=== PATIENT | male | born 1945 | race African-American/Black ===

== ENCOUNTER 2017-04-07 14:41 | Inpatient (IN) ==
[2017-04-07] MEDS ORDERED: NS 1,000 ML IV ONE ×3 (15:08→16:39)
[2017-04-07 15:48] LABS: HEMATOCRIT 26.7 % (42.0-52.0); HEMOGLOBIN 8.5 g/dL (14.0-18.0); LYMPH% 74.6 % (20.5-51.1); MANUAL DIFF NEEDED? YES; MCH 28.1 PG (27-31); MCHC 31.8 g/dL (33-37); MCV 88.1 FL (81-99); MONO# 0.08 X1000 (0.11-0.59); MONO% 11.9 % (1.7-9.3); NEUT% 13.5 % (42.2-75.2); PLT 93 X1000 (130-400); RBC 3.03 XMIL (4.7-6.1)
--- NOTE | 2017-04-07 16:05 | Diag Imaging Result Doc PS360 ---
EXAM: CHEST-PORTABLE HISTORY: SOB TECHNIQUE: Portable AP COMPARISON: 03/13/2017 FINDINGS: There is a [id number] right-sided pleural effusion which remains. Although this may be slightly smaller, this difference in appearance may simply be due to the current film being taken in an apical lordotic projection. There is right basilar atelectasis. The heart is not enlarged. The vessels are not distended. IMPRESSION: Persistent right pleural effusion with basilar atelectasis Electronically signed by Abdoulaye Lopez 04/07/2017 4:03 PM
[2017-04-07 16:07] LABS: ALBUMIN 3.5 g/dL (3.5-5.0); CALCIUM 7.4 mg/dL (8.8-10.2); MAGNESIUM 1.9 mg/dL (1.5-2.7); POTASSIUM 4.2 mmol/L (3.5-5.1); TOTAL BILIRUBIN 0.7 mg/dL (0.20-1.00); TOTAL PROTEIN 7.3 g/dL (6.3-8.3)
[2017-04-07 16:16] LABS: INR 1.08 (0.86-1.15); PROTIME 14.9 Seconds (12.1-15.5)
[2017-04-07 16:17] LABS: PTT PL 48.2 Seconds (22.6-43.9)
[2017-04-07 16:22] LABS: LYMPHS 75 % (21-51); MONO 5 % (1-9)
[2017-04-07] MEDS ORDERED: LEVOPHED 8 MG in D5 1/2 NS 250 ML IV SCH (16:45)
[2017-04-07] MEDS ORDERED: ZOSYN 3.375 GM/NS 3.375 GM/50 ML IVPB IV ONE (17:37)
[2017-04-07] MEDS ORDERED: VANCOMYCIN 1 GM/NS 1 GM/250 ML IVPB IV ONE (17:37)
--- NOTE | 2017-04-07 18:42 | Diag Imaging Result Doc PS360 ---
ANGIOGRAM/PULMONARY ARTERIES - 04/07/2017 INDICATION: SOB with elevated D-dimer. Lung cancer on chemo TECHNIQUE: Axial CT images were obtained after administering intravenous contrast. Coronal MIP images were generated. A CT dose reduction protocol was used. COMPARISON: 01/27/2017 FINDINGS: There is moderate patient motion artifact. No definite pulmonary embolism. Heart and great vessels are normal. Upper abdominal images are grossly normal. There are some right-sided renal cysts. There is slight decrease in size of the right hilar mass. This now measures about 6.8 x 4.9 cm in AP and lateral dimensions, previously measuring about 7.4 x 5.5 cm. Trace right pleural effusion. There is some linear atelectasis or scarring in the right lower lobe. Airways are grossly patent. There is increase in size of a large bony metastasis in T3. This is in the vertebral body. A few other skeletal metastases in the spine have also enlarged since prior. IMPRESSION: 1. No definite pulmonary embolism. 2. Slight decrease in size of the right hilar mass. 3. Worsening skeletal metastatic disease. Electronically signed by Doyle Pittman 04/07/2017 6:40 PM
[2017-04-07] MEDS ORDERED: NEUPOGEN SUBQ ONE (19:51)
[2017-04-07] MEDS ORDERED: GRANIX SUBQ ONE (20:15)
[2017-04-07] MEDS: MAXIPIME 1 GM/NS 1 GM/50 ML IVPB IV SCH (20:22)
[2017-04-07 21:42] LABS: BILIRUBIN URINE NEGATIVE (NEGATIVE); BLOOD URINE NEGATIVE (NEGATIVE); CLARITY CLEAR (CLEAR); COLOR YELLOW; GLUCOSE URINE NEGATIVE (NEGATIVE); LEUKOCYTES URINE NEGATIVE (NEGATIVE); NITRITE URINE NEGATIVE (NEGATIVE); PROTEIN URINE TRACE mg/dL (NEGATIVE); URINE CULTURE PL NEEDED? YES; URINE EPITHELIAL CELLS <10 /HPF (<10); URINE RBC <10 /HPF (<10); URINE WBC <10 /HPF (<10); UROBILINOGEN URINE 1+(1 mg/dL)
[2017-04-07 21:43] LABS: URINE SOURCE CLEAN CATCH
[2017-04-08 06:27] LABS: HEMATOCRIT 22.8 % (42.0-52.0); HEMOGLOBIN 7.3 g/dL (14.0-18.0); IMM GRAN# 0.02 X1000 (0.0-0.04); IMM GRAN% 1.9 % (0.0-0.5); LYMPH# 0.71 X1000 (1.2-3.4); LYMPH% 65.7 % (20.5-51.1); MANUAL DIFF NEEDED? YES; MCH 28.9 PG (27-31); MCV 90.1 FL (81-99); MONO# 0.21 X1000 (0.11-0.59); MONO% 19.4 % (1.7-9.3); MPV 10.8 FL (7.4-10.4); PLT 91 X1000 (130-400); RBC 2.53 XMIL (4.7-6.1)
[2017-04-08 06:49] LABS: ALBUMIN 3.1 g/dL (3.5-5.0); POTASSIUM 4.2 mmol/L (3.5-5.1); TOTAL BILIRUBIN 0.4 mg/dL (0.20-1.00); TOTAL PROTEIN 6.4 g/dL (6.3-8.3)
[2017-04-08 06:51] LABS: CALCIUM 6.7 mg/dL (8.8-10.2)
[2017-04-08] MEDS ORDERED: CALCIUM GLUCONATE 1 GM in NS 50 ML IV ONE (07:40)
[2017-04-08 08:00] LABS: LYMPHS 55 % (21-51); MONO 20 % (1-9)
[2017-04-08] MEDS: MAXIPIME 1 GM/NS 1 GM/50 ML IVPB IV SCH ×2 (08:01→20:18)
[2017-04-08] MEDS ORDERED: LEVOPHED 8 MG in D5 1/2 NS 250 ML IV PRN (08:04)
[2017-04-08] MEDS ORDERED: HYDREA PO SCH (09:15)
[2017-04-08] MEDS ORDERED: AGRYLIN PO SCH (09:15)
[2017-04-08] MEDS: ASPIRIN EC PO SCH (11:05)
[2017-04-08] MEDS ORDERED: NS 500 ML ONE (11:42)
[2017-04-08] MEDS: NS 1,000 ML IV SCH ×2 (12:09→20:18)
[2017-04-08] MEDS: ZOCOR PO SCH (20:18)
[2017-04-09] MEDS: NS 1,000 ML IV SCH ×3 (03:39→19:59)
[2017-04-09 06:08] LABS: HEMATOCRIT 26.2 % (42.0-52.0); HEMOGLOBIN 8.3 g/dL (14.0-18.0); MCH 27.9 PG (27-31); MCHC 31.7 g/dL (33-37); MCV 88.2 FL (81-99); MPV 9.7 FL (7.4-10.4); RBC 2.97 XMIL (4.7-6.1)
[2017-04-09 06:32] LABS: AGAP 11; BUN 10 mg/dL (8-22); CALCIUM 6.8 mg/dL (8.8-10.2); CHLORIDE 106 mmol/L (98-107); COSMO 270; POTASSIUM 3.5 mmol/L (3.5-5.1); SODIUM 136 mmol/L (136-145); TCO2 19 mmol/L (25-35)
[2017-04-09] MEDS ORDERED: CALCIUM GLUCONATE 1 GM in NS 50 ML IV ONE (06:48)
[2017-04-09] MEDS: MAXIPIME 1 GM/NS 1 GM/50 ML IVPB IV SCH ×2 (08:26→20:29)
[2017-04-09] MEDS: ASPIRIN EC PO SCH (08:26)
[2017-04-09] MEDS: CALTRATE 600 + D PO SCH ×2 (14:35→21:48)
--- NOTE | 2017-04-09 19:33 | Diag Imaging Result Doc PS360 ---
EXAM: CHEST-PORTABLE HISTORY: rule out PNA TECHNIQUE: Erect AP portable at 1913 COMMENT: There is pleural fluid and/or thickening on the right with basilar atelectasis. This has not changed appreciably since 04/07/2017. The possibility of right lower lobe or middle lobe pneumonia cannot be excluded. IMPRESSION: Essentially stable since 04/07/2017. Electronically signed by Mando Flores 04/09/2017 7:30 PM
[2017-04-09] MEDS: TYLENOL PO PRN (19:59)
[2017-04-09] MEDS: ZOCOR PO SCH (21:48)
[2017-04-10] MEDS: NS 1,000 ML IV SCH (03:30)
[2017-04-10 06:15] LABS: POTASSIUM 3.6 mmol/L (3.5-5.1)
[2017-04-10 06:22] LABS: CALCIUM 6.9 mg/dL (8.8-10.2)
[2017-04-10 06:35] LABS: BASO% 0.8 % (0.0-0.8); EOS# 0.01 X1000 (0.0-0.7); EOS% 0.1 % (0.0-10.0); HEMATOCRIT 26.6 % (42.0-52.0); HEMOGLOBIN 8.7 g/dL (14.0-18.0); MANUAL DIFF NEEDED? YES; MCH 29.1 PG (27-31); MCHC 32.7 g/dL (33-37); MONO# 1.12 X1000 (0.11-0.59); MPV 10.4 FL (7.4-10.4); PLT 223 X1000 (130-400); RBC 2.99 XMIL (4.7-6.1)
[2017-04-10] MEDS ORDERED: CALCIUM GLUCONATE 1 GM in NS 50 ML IV ONE (07:30)
[2017-04-10 08:09] LABS: BANDS 10 % (0-1); LYMPHS 21 % (21-51); METAMYELOCYTES 10 %; MONO 6 % (1-9)
[2017-04-10] MEDS: CALTRATE 600 + D PO SCH ×2 (09:55→21:59)
[2017-04-10] MEDS: ASPIRIN EC PO SCH (09:55)
[2017-04-10] MEDS: MAXIPIME 1 GM/NS 1 GM/50 ML IVPB IV SCH ×2 (10:09→21:59)
[2017-04-10] MEDS ORDERED: DUONEB (A & A) INH PRN (10:26)
[2017-04-10] MEDS: ZITHROMAX 500 MG/NS 500 MG/250 ML IVPB IV SCH (10:59)
[2017-04-10] MEDS: DUONEB (A & A) INH SCH ×3 (11:03→22:19)
[2017-04-10] MEDS: COREG PO SCH ×2 (18:03→21:59)
[2017-04-10] MEDS: ZOCOR PO SCH (21:59)
[2017-04-11] MEDS: TYLENOL PO PRN (00:19)
[2017-04-11] MEDS: DUONEB (A & A) INH SCH ×4 (03:26→22:18)
[2017-04-11 07:13] LABS: BASO% 0.6 % (0.0-0.8); EOS# 0.01 X1000 (0.0-0.7); EOS% 0.1 % (0.0-10.0); IMM GRAN# 4.15 X1000 (0.0-0.04); LYMPH# 1.76 X1000 (1.2-3.4); LYMPH% 12.3 % (20.5-51.1); MANUAL DIFF NEEDED? YES; MCH 28.5 PG (27-31); MCHC 32.1 g/dL (33-37); MCV 88.6 FL (81-99); MONO# 1.53 X1000 (0.11-0.59); MONO% 10.7 % (1.7-9.3); NEUT% 47.3 % (42.2-75.2); PLT 273 X1000 (130-400); RBC 3.16 XMIL (4.7-6.1)
[2017-04-11 07:52] LABS: POTASSIUM 3.4 mmol/L (3.5-5.1)
[2017-04-11] MEDS: PRINIVIL PO SCH (08:12)
[2017-04-11] MEDS: MAXIPIME 1 GM/NS 1 GM/50 ML IVPB IV SCH ×2 (08:12→21:56)
[2017-04-11] MEDS: COREG PO SCH ×2 (08:12→22:17)
[2017-04-11] MEDS: CALTRATE 600 + D PO SCH ×2 (08:12→21:56)
[2017-04-11] MEDS: ASPIRIN EC PO SCH (08:12)
[2017-04-11 08:59] LABS: BASO 2 % (0-1); EOS 1 % (1-10); LYMPHS 15 % (21-51); MONO 18 % (1-9)
[2017-04-11] MEDS: ZITHROMAX 500 MG/NS 500 MG/250 ML IVPB IV SCH (10:38)
[2017-04-11] MEDS: ZOCOR PO SCH (21:56)
[2017-04-11] MEDS: ZOFRAN IV PRN (22:22)
[2017-04-12 00:10] LABS: URINE CULTURE PL NEEDED? NO; URINE SOURCE CLEAN CATCH
[2017-04-12] MEDS: TYLENOL PO PRN ×3 (00:27→22:05)
[2017-04-12 00:28] LABS: BILIRUBIN URINE NEGATIVE (NEGATIVE); BLOOD URINE 2+ (NEGATIVE); CLARITY SL. CLOUDY (CLEAR); COLOR YELLOW; GLUCOSE URINE NEGATIVE (NEGATIVE); LEUKOCYTES URINE NEGATIVE (NEGATIVE); NITRITE URINE NEGATIVE (NEGATIVE); PROTEIN URINE 1+(30 mg/dL) mg/dL (NEGATIVE); SP GRAVITY URINE 1.005; UROBILINOGEN URINE NORMAL
[2017-04-12 00:44] LABS: URINE EPITHELIAL CELLS <10 /HPF (<10)
[2017-04-12] MEDS: DUONEB (A & A) INH SCH ×4 (03:45→22:00)
[2017-04-12 07:40] LABS: HEMATOCRIT 26.6 % (42.0-52.0); HEMOGLOBIN 8.6 g/dL (14.0-18.0); MCH 28.3 PG (27-31); MCHC 32.3 g/dL (33-37); MCV 87.5 FL (81-99); MPV 10.2 FL (7.4-10.4); RBC 3.04 XMIL (4.7-6.1)
[2017-04-12] MEDS ORDERED: VANCOMYCIN IV PER PHARMACY MISC SCH (09:00)
[2017-04-12] MEDS ORDERED: VANCOMYCIN 2,000 MG in NS 500 ML IV ONE (10:00)
[2017-04-12 10:03] LABS: AGAP 18; ALBUMIN 2.8 g/dL (3.5-5.0); ALKALINE PHOSPHATASE 81 U/L (32-122); BUN 18 mg/dL (8-22); CALCIUM 6.4 mg/dL (8.8-10.2); CHLORIDE 93 mmol/L (98-107); COSMO 266; GOT 40 U/L (10-34); GPT 55 U/L (10-44); MAGNESIUM 1.1 mg/dL (1.5-2.7); POTASSIUM 3.2 mmol/L (3.5-5.1); SODIUM 132 mmol/L (136-145); TCO2 21 mmol/L (25-35); TOTAL BILIRUBIN 0.24 mg/dL (0.20-1.00); TOTAL PROTEIN 6.4 g/dL (6.3-8.3)
[2017-04-12] MEDS: CALTRATE 600 + D PO SCH ×2 (10:10→21:13)
[2017-04-12] MEDS: ASPIRIN EC PO SCH (10:10)
[2017-04-12] MEDS: PRINIVIL PO SCH (10:10)
[2017-04-12] MEDS: COREG PO SCH ×2 (10:10→22:06)
[2017-04-12 11:02] LABS: URINE CULTURE PL NEEDED? NO
[2017-04-12 11:28] LABS: BILIRUBIN URINE NEGATIVE (NEGATIVE); BLOOD URINE 2+ (NEGATIVE); CLARITY CLEAR (CLEAR); COLOR YELLOW; GLUCOSE URINE NEGATIVE (NEGATIVE); LEUKOCYTES URINE NEGATIVE (NEGATIVE); NITRITE URINE NEGATIVE (NEGATIVE); PH URINE 6.5; PROTEIN URINE 1+(30 mg/dL) mg/dL (NEGATIVE); SP GRAVITY URINE 1.005; UROBILINOGEN URINE NORMAL
[2017-04-12 11:42] LABS: URINE EPITHELIAL CELLS <10 /HPF (<10); URINE WBC <10 /HPF (<10)
[2017-04-12 11:43] LABS: URINE SOURCE CLEAN CATCH
[2017-04-12] MEDS: ZITHROMAX 500 MG/NS 500 MG/250 ML IVPB IV SCH (12:20)
[2017-04-12] MEDS: ZOSYN 3.375 GM in NS 50 ML IV SCH ×2 (13:26→21:12)
[2017-04-12] MEDS: ZOCOR PO SCH (21:13)
[2017-04-13] MEDS: ZOSYN 3.375 GM in NS 50 ML IV SCH (02:22)
[2017-04-13] MEDS: DUONEB (A & A) INH SCH ×4 (03:58→22:05)
[2017-04-13 06:09] LABS: HEMATOCRIT 26.6 % (42.0-52.0); HEMOGLOBIN 8.6 g/dL (14.0-18.0); MCH 28.2 PG (27-31); MCHC 32.3 g/dL (33-37); MCV 87.2 FL (81-99); MPV 10.2 FL (7.4-10.4); RBC 3.05 XMIL (4.7-6.1)
[2017-04-13 06:39] LABS: ALBUMIN 2.5 g/dL (3.5-5.0); POTASSIUM 3.1 mmol/L (3.5-5.1); TOTAL BILIRUBIN 0.3 mg/dL (0.20-1.00); TOTAL PROTEIN 6.2 g/dL (6.3-8.3)
[2017-04-13 06:41] LABS: CALCIUM 5.9 mg/dL (8.8-10.2)
[2017-04-13] MEDS ORDERED: CALCIUM CHLORIDE 1 GM in NS 100 ML IV ONE (07:18)
[2017-04-13] MEDS: ASPIRIN EC PO SCH (08:20)
[2017-04-13] MEDS: CALTRATE 600 + D PO SCH ×2 (08:20→21:46)
[2017-04-13] MEDS: PRINIVIL PO SCH (08:21)
[2017-04-13] MEDS: COREG PO SCH ×2 (08:22→21:58)
--- NOTE | 2017-04-13 08:24 | Diag Imaging Result Doc PS360 ---
EXAM: CHEST-2 VIEWS INDICATION: hypoxia TECHNIQUE: 2 views COMPARISON: 04/09/2017 FINDINGS: There is stable blunting of the right costophrenic angle suggesting a small effusion versus chronic pleural thickening. There is stable linear atelectasis versus scarring at the right lung base. As stated previously, superimposed infiltrate at the right base cannot completely be excluded. There are no new consolidations appreciated. Cardiac silhouette is stable. IMPRESSION: Stable chest. Electronically signed by Aiden Wolfe 04/13/2017 8:22 AM
[2017-04-13] MEDS: ZOSYN 2.25 GM in NS 50 ML IV SCH ×4 (09:21→22:55)
[2017-04-13] MEDS ORDERED: VANCOMYCIN 1,500 MG in NS 250 ML IV SCH (10:00)
[2017-04-13] MEDS ORDERED: ZYVOX 600 MG/D5W 600 MG/300 ML IVPB IV SCH (10:00)
[2017-04-13] MEDS: ZITHROMAX 500 MG/NS 500 MG/250 ML IVPB IV SCH (10:07)
[2017-04-13] MEDS ORDERED: CALCIUM GLUCONATE 2 GM in NS 100 ML IV ONE (14:00)
[2017-04-13] MEDS: DOXYCYCLINE PO SCH (18:49)
[2017-04-13] MEDS: ZOCOR PO SCH (21:46)
[2017-04-14] MEDS: DUONEB (A & A) INH SCH ×4 (03:56→22:30)
[2017-04-14 05:59] LABS: HEMATOCRIT 25.4 % (42.0-52.0); HEMOGLOBIN 8.1 g/dL (14.0-18.0); MCH 27.6 PG (27-31); MCHC 31.9 g/dL (33-37); MCV 86.4 FL (81-99); MPV 9.9 FL (7.4-10.4); RBC 2.94 XMIL (4.7-6.1)
[2017-04-14] MEDS: DOXYCYCLINE PO SCH ×2 (06:08→20:17)
[2017-04-14] MEDS: ZOSYN 2.25 GM in NS 50 ML IV SCH ×4 (06:08→23:19)
[2017-04-14 06:29] LABS: ALBUMIN 2.4 g/dL (3.5-5.0); MAGNESIUM 1.2 mg/dL (1.5-2.7); POTASSIUM 3.6 mmol/L (3.5-5.1); TOTAL BILIRUBIN 0.3 mg/dL (0.20-1.00); TOTAL PROTEIN 6.5 g/dL (6.3-8.3)
[2017-04-14 06:36] LABS: CALCIUM 6.6 mg/dL (8.8-10.2)
[2017-04-14] MEDS ORDERED: MAGNESIUM SULFATE 2 GM/S.W.I. 2 GM/50 ML IVPB IV ONE (07:01)
[2017-04-14] MEDS: NS 1,000 ML IV SCH ×2 (08:08→11:00)
[2017-04-14] MEDS ORDERED: CALCIUM GLUCONATE ONE (08:21)
[2017-04-14] MEDS: CALTRATE 600 + D PO SCH ×2 (08:28→20:17)
[2017-04-14] MEDS: ASPIRIN EC PO SCH (08:28)
[2017-04-14] MEDS: COREG PO SCH ×2 (08:28→20:17)
[2017-04-14] MEDS ORDERED: CALCIUM GLUCONATE 2 GM in NS 100 ML IV ONE (09:00)
[2017-04-14] MEDS: TYLENOL PO PRN (12:08)
[2017-04-14] MEDS: ZOFRAN IV PRN (12:18)
--- NOTE | 2017-04-14 14:29 | Diag Imaging Result Doc PS360 ---
EXAM: US RENAL 2 (RETROPER) COMPLETE HISTORY: decreased renal function TECHNIQUE: COMPARISON: None. FINDINGS: The right kidney measures 12.8 x 6.5 x 5.9 cm. There are several right renal cysts. The largest measures 2.3 cm. No stone or hydronephrosis. The left kidney measures 12.1 x 5.9 x 6.5 cm. Normal renal echogenicity and cortical thickness. No renal stone or hydronephrosis. The urinary bladder is mild to moderately distended and appears normal IMPRESSION: There are two right renal cysts, otherwise normal renal ultrasound. Electronically signed by Abdoulaye Lopez 04/14/2017 2:27 PM
[2017-04-14 15:18] LABS: UR PROT RANDOM 158.7 mg/dL
[2017-04-14] MEDS: ZOCOR PO SCH (20:17)
[2017-04-14] MEDS ORDERED: VANCOMYCIN 1,350 MG in NS 250 ML IV SCH (22:00)
[2017-04-15] MEDS: TYLENOL PO PRN (00:27)
[2017-04-15] MEDS: CALTRATE 600 + D PO SCH ×3 (00:58→08:01)
[2017-04-15] MEDS: NS 1,000 ML IV SCH ×3 (00:59→22:56)
[2017-04-15] MEDS: DUONEB (A & A) INH SCH ×3 (03:30→15:23)
[2017-04-15] MEDS: ZOSYN 2.25 GM in NS 50 ML IV SCH ×4 (04:35→22:56)
[2017-04-15] MEDS: DOXYCYCLINE PO SCH ×3 (06:18→18:43)
[2017-04-15 06:40] LABS: HEMATOCRIT 23.4 % (42.0-52.0); HEMOGLOBIN 7.7 g/dL (14.0-18.0); MCH 29.3 PG (27-31); MCHC 32.9 g/dL (33-37); MPV 10.1 FL (7.4-10.4); RBC 2.63 XMIL (4.7-6.1)
[2017-04-15] MEDS: COREG PO SCH (08:01)
[2017-04-15] MEDS: ASPIRIN EC PO SCH (08:01)
[2017-04-15 08:03] LABS: AGAP 20; ALBUMIN 2.6 g/dL (3.5-5.0); BUN 50 mg/dL (8-22); CHLORIDE 100 mmol/L (98-107); COSMO 286; POTASSIUM 3.4 mmol/L (3.5-5.1); SODIUM 136 mmol/L (136-145); TCO2 16 mmol/L (25-35)
[2017-04-15] MEDS ORDERED: CALCIUM GLUCONATE 2 GM in NS 100 ML IV ONE (08:36)
[2017-04-15] MEDS ORDERED: VANCOMYCIN 1 GM/NS 1 GM/250 ML IVPB IV ONE (15:00)
[2017-04-16] MEDS: CALTRATE 600 + D PO SCH ×3 (03:16→20:42)
[2017-04-16] MEDS: COREG PO SCH ×3 (03:17→20:42)
[2017-04-16] MEDS: ZOCOR PO SCH ×2 (03:17→20:42)
[2017-04-16] MEDS: NS 1,000 ML IV SCH ×4 (03:17→20:40)
[2017-04-16] MEDS: DUONEB (A & A) INH SCH ×4 (05:14→22:41)
[2017-04-16] MEDS: ZOSYN 2.25 GM in NS 50 ML IV SCH ×4 (05:47→20:42)
[2017-04-16 06:13] LABS: HEMATOCRIT 23.2 % (42.0-52.0); HEMOGLOBIN 7.6 g/dL (14.0-18.0); MCH 28.5 PG (27-31); MCHC 32.8 g/dL (33-37); MCV 86.9 FL (81-99); MPV 10.2 FL (7.4-10.4); RBC 2.67 XMIL (4.7-6.1)
[2017-04-16 06:35] LABS: ALBUMIN 2.3 g/dL (3.5-5.0); POTASSIUM 3.1 mmol/L (3.5-5.1)
[2017-04-16 06:41] LABS: CALCIUM 6.3 mg/dL (8.8-10.2)
[2017-04-16] MEDS: DOXYCYCLINE PO SCH ×2 (08:14→20:42)
[2017-04-16] MEDS: ASPIRIN EC PO SCH (08:14)
[2017-04-16 11:58] LABS: RETIC% 0.2 % (0.8-2.1); RETIC-HE 26.6 PG (28.2-36.6)
[2017-04-16] MEDS ORDERED: CALCIUM GLUCONATE 1 GM in NS 50 ML IV ONE (12:00)
[2017-04-16 12:20] LABS: IRON SATURATION 78 %; TIBC 114 ug/dL; TOTAL IRON 89 ug/dL (53-167); UNBOUND IRON 25 ug/dL (112-346)
[2017-04-16] MEDS ORDERED: POTASSIUM CHLORIDE 20 MEQ/SWI 20 MEQ/100 ML IVPB IV ONE (12:30)
[2017-04-16 12:45] LABS: FERRITIN 5482 ng/mL (30-400)
[2017-04-16] MEDS: VITAMIN D PO SCH (17:25)
[2017-04-16] MEDS ORDERED: VANCOMYCIN 1 GM/NS 1 GM/250 ML IVPB IV ONE (19:07)
[2017-04-17] MEDS: ZOSYN 2.25 GM in NS 50 ML IV SCH ×4 (00:17→19:56)
[2017-04-17] MEDS: CULTURELLE PO SCH ×2 (02:19→10:08)
[2017-04-17] MEDS: NS 1,000 ML IV SCH ×3 (02:20→10:18)
[2017-04-17 03:01] LABS: UR CREAT RANDOM 45.1 mg/dL (14-26); UR PROT RANDOM 52.6 mg/dL
[2017-04-17] MEDS: DUONEB (A & A) INH SCH ×4 (03:45→22:30)
[2017-04-17 07:05] LABS: HEMATOCRIT 21.5 % (42.0-52.0); HEMOGLOBIN 6.9 g/dL (14.0-18.0); MCH 28.9 PG (27-31); MCHC 32.1 g/dL (33-37); MPV 9.6 FL (7.4-10.4); RBC 2.39 XMIL (4.7-6.1)
[2017-04-17] MEDS ORDERED: VANCOMYCIN IV PER PHARMACY MISC SCH (07:45)
[2017-04-17 08:13] LABS: ALBUMIN 2.3 g/dL (3.5-5.0); CALCIUM 6.1 mg/dL (8.8-10.2); POTASSIUM 3.4 mmol/L (3.5-5.1)
--- NOTE | 2017-04-17 08:45 | Diag Imaging Result Doc PS360 ---
EXAM: CHEST-2 VIEWS HISTORY: pneumonia TECHNIQUE: Two views the chest COMMENT: There is what appears to be a loculated right pleural effusion versus pleural thickening. There is enlargement of the right hilum. This is more prominent even than the previous study of 04/13/2017. It is likely of the appearance on the PA radiograph is due to an opacity posterior to the right hilum seen on the lateral view which is again more demonstrable than on the previous study. This is also demonstrated on the CT of 04/07/2017. IMPRESSION: Worsening postobstructive pneumonia in the superior segment of the right lower lobe posterior medially. Loculated right pleural effusion. Electronically signed by Mando Flores 04/17/2017 8:43 AM
[2017-04-17] MEDS ORDERED: POTASSIUM CHLORIDE 40 MEQ in NS 250 ML IV ONE (09:30)
[2017-04-17] MEDS ORDERED: CALCIUM GLUCONATE 1 GM in NS 50 ML IV ONE (09:30)
[2017-04-17] MEDS ORDERED: MAGNESIUM SULFATE 2 GM/S.W.I. 2 GM/50 ML IVPB IV ONE (10:00)
[2017-04-17] MEDS: COREG PO SCH (10:08)
[2017-04-17] MEDS: CALTRATE 600 + D PO SCH (10:08)
[2017-04-17] MEDS: ASPIRIN EC PO SCH (10:08)
[2017-04-17] MEDS: DOXYCYCLINE PO SCH (10:08)
--- NOTE | 2017-04-17 11:24 | Diag Imaging Result Doc PS360 ---
EXAM: CT THORAX W/O CONTRAST INDICATION: loculated pleural effusion TECHNIQUE: Dose reduction protocol was used. COMPARISON: 04/07/2017 FINDINGS: There is a small partially loculated right pleural fluid collection that is tracking into the major fissure. It is slightly larger than the previous study. There is a known right perihilar mass that is very similar in size to the previous study measuring up to 5.8 x 4.2 cm axially (5.7 x 4.5 cm previously, remeasured). Linear atelectasis versus scarring at the right lung base is essentially stable. There is mild subsegmental atelectasis that has developed at the left lung base. The heart is stable as imaged with unenhanced CT. Small lytic bony metastases involving the spine are unchanged. IMPRESSION: 1.Small partially loculated right pleural effusion that is slightly larger than the previous study. 2.Grossly stable right perihilar mass. 3.Development of minimal subsegmental atelectasis at the left lung base. 4.Otherwise, the chest is grossly stable as compared to the fairly recent contrast enhanced CT. Electronically signed by Aiden Wolfe 04/17/2017 11:21 AM
[2017-04-17] MEDS: SODIUM ACETATE 150 MEQ in D5W 1,000 ML IV SCH ×2 (12:13→20:52)
[2017-04-17] MEDS ORDERED: NS 500 ML ONE (13:37)
[2017-04-17] MEDS: ZOFRAN IV PRN (20:47)
[2017-04-18] MEDS: CALTRATE 600 + D PO SCH ×3 (03:30→20:17)
[2017-04-18] MEDS: ZOCOR PO SCH ×2 (03:31→20:17)
[2017-04-18] MEDS: COREG PO SCH ×3 (03:31→20:17)
[2017-04-18] MEDS: CULTURELLE PO SCH ×3 (03:31→20:17)
[2017-04-18] MEDS: DOXYCYCLINE PO SCH ×3 (03:31→15:10)
[2017-04-18] MEDS: DUONEB (A & A) INH SCH ×4 (03:37→21:00)
[2017-04-18] MEDS: ZOSYN 2.25 GM in NS 50 ML IV SCH ×3 (04:40→18:12)
[2017-04-18] MEDS: SODIUM ACETATE 150 MEQ in D5W 1,000 ML IV SCH ×2 (04:41→12:45)
[2017-04-18 06:32] LABS: BASO% 0.1 % (0.0-0.8); HEMOGLOBIN 8.5 g/dL (14.0-18.0); IMM GRAN# 0.56 X1000 (0.0-0.04); IMM GRAN% 4.1 % (0.0-0.5); LYMPH# 0.82 X1000 (1.2-3.4); LYMPH% 6.1 % (20.5-51.1); MANUAL DIFF NEEDED? YES; MCH 29.1 PG (27-31); MCV 85.6 FL (81-99); MONO% 4.4 % (1.7-9.3); NEUT% 85.3 % (42.2-75.2); PLT 194 X1000 (130-400); RBC 2.92 XMIL (4.7-6.1)
[2017-04-18 06:44] LABS: ALBUMIN 2.1 g/dL (3.5-5.0); POTASSIUM 3.4 mmol/L (3.5-5.1)
[2017-04-18 07:05] LABS: CALCIUM 5.9 mg/dL (8.8-10.2)
[2017-04-18 07:06] LABS: LYMPHS 6 % (21-51); MONO 4 % (1-9)
[2017-04-18] MEDS ORDERED: CALCIUM GLUCONATE 1 GM in NS 50 ML IV ONE (08:00)
[2017-04-18] MEDS: ASPIRIN EC PO SCH (08:50)
[2017-04-18] MEDS: ZOFRAN IV PRN (08:51)
[2017-04-18] MEDS: POTASSIUM CHLORIDE 20 MEQ/SWI 20 MEQ/100 ML IVPB IV SCH ×2 (12:43→15:11)
[2017-04-18] MEDS ORDERED: IMODIUM PO ONE (13:40)
[2017-04-18] MEDS ORDERED: IMODIUM PO PRN (13:40)
[2017-04-18] MEDS ORDERED: TYLENOL PO PRN (13:56)
[2017-04-18] MEDS: QUESTRAN LIGHT PO SCH (18:10)
[2017-04-19] MEDS: SODIUM ACETATE 150 MEQ in D5W 1,000 ML IV SCH ×3 (00:18→19:42)
[2017-04-19] MEDS: ZOSYN 2.25 GM in NS 50 ML IV SCH ×4 (01:30→21:29)
[2017-04-19] MEDS: DUONEB (A & A) INH SCH ×4 (04:15→21:28)
[2017-04-19 07:10] LABS: BASO% 0.2 % (0.0-0.8); HEMATOCRIT 24.6 % (42.0-52.0); HEMOGLOBIN 8.1 g/dL (14.0-18.0); IMM GRAN# 0.29 X1000 (0.0-0.04); IMM GRAN% 2.3 % (0.0-0.5); LYMPH# 0.86 X1000 (1.2-3.4); LYMPH% 6.7 % (20.5-51.1); MANUAL DIFF NEEDED? NO; MCH 28.2 PG (27-31); MCHC 32.9 g/dL (33-37); MCV 85.7 FL (81-99); MONO# 0.61 X1000 (0.11-0.59); MONO% 4.8 % (1.7-9.3); MPV 9.7 FL (7.4-10.4); PLT 168 X1000 (130-400); RBC 2.87 XMIL (4.7-6.1)
[2017-04-19] MEDS ORDERED: MAGNESIUM SULFATE 2 GM/S.W.I. 2 GM/50 ML IVPB IV ONE (07:36)
[2017-04-19] MEDS ORDERED: VANCOMYCIN 1.35 GM in NS 250 ML IV SCH (08:00)
[2017-04-19 08:07] LABS: ALBUMIN 2.4 g/dL (3.5-5.0); POTASSIUM 3.2 mmol/L (3.5-5.1)
--- NOTE | 2017-04-19 08:40 | Diag Imaging Result Doc PS360 ---
CT ABD/PELVIS ORAL CONTR ONLY - 04/19/2017 INDICATION: diarrhea, neutropenia on admission TECHNIQUE: A CT dose reduction protocol was used. COMPARISON: 02/05/2017, 04/17/2017 FINDINGS: There is slight worsening in the small right basilar pleural effusion. Worsening trace left pleural effusion as well. Stable trace pericardial effusion. Stable right hilar adenopathy. There is mild splenomegaly. No radiodense renal stones. No hydronephrosis or hydroureter. There is trace pelvic free fluid. No bowel obstruction or inflammation. Normal appendix. Urinary bladder, prostate, and rectum are normal. There are a few scattered bony metastases throughout the pelvis. No fractures. IMPRESSION: 1. Slight worsening fluid collections. 2. Worsening splenomegaly. 3. Bony metastases to the pelvis. Electronically signed by Doyle Pittman 04/19/2017 8:38 AM
[2017-04-19] MEDS: CULTURELLE PO SCH ×2 (09:14→21:00)
[2017-04-19] MEDS: CALTRATE 600 + D PO SCH ×2 (09:14→21:00)
[2017-04-19] MEDS: COREG PO SCH ×2 (09:14→23:55)
[2017-04-19] MEDS: QUESTRAN LIGHT PO SCH ×2 (09:14→13:41)
[2017-04-19] MEDS: DOXYCYCLINE PO SCH ×2 (09:15→23:56)
[2017-04-19] MEDS ORDERED: CALCIUM GLUCONATE 1 GM in NS 50 ML IV ONE (10:40)
[2017-04-19] MEDS: ASPIRIN EC PO SCH (13:37)
[2017-04-19] MEDS: POTASSIUM CHLORIDE 20 MEQ/SWI 20 MEQ/100 ML IVPB IV SCH ×2 (13:37→15:23)
[2017-04-19 17:10] LABS: CALCIUM 5.9 mg/dL (8.8-10.2); MAGNESIUM 1.9 mg/dL (1.5-2.7); POTASSIUM 3.8 mmol/L (3.5-5.1)
[2017-04-19] MEDS ORDERED: CALCIUM GLUCONATE 2 GM in NS 100 ML IV ONE (19:00)
[2017-04-19] MEDS: ZOFRAN IV PRN (20:34)
[2017-04-19] MEDS ORDERED: SODIUM CHLORIDE 0.9% INJ PRN (22:14)
[2017-04-19] MEDS: PHENERGAN IV PRN (22:33)
[2017-04-19] MEDS: ZOCOR PO SCH (23:55)
[2017-04-20] MEDS: ZOFRAN IV PRN (02:07)
[2017-04-20] MEDS: ZOSYN 2.25 GM in NS 50 ML IV SCH ×4 (02:07→23:02)
[2017-04-20] MEDS: DUONEB (A & A) INH SCH ×4 (03:10→21:00)
[2017-04-20] MEDS: SODIUM ACETATE 150 MEQ in D5W 1,000 ML IV SCH ×2 (03:12→05:18)
[2017-04-20] MEDS: PHENERGAN IV PRN ×2 (05:18→23:02)
[2017-04-20 07:13] LABS: HEMATOCRIT 26.4 % (42.0-52.0); HEMOGLOBIN 8.5 g/dL (14.0-18.0); MCH 29.1 PG (27-31); MCHC 32.2 g/dL (33-37); MCV 90.4 FL (81-99); MPV 11.2 FL (7.4-10.4); RBC 2.92 XMIL (4.7-6.1)
[2017-04-20 07:26] LABS: ALBUMIN 2.3 g/dL (3.5-5.0); POTASSIUM 3.3 mmol/L (3.5-5.1)
[2017-04-20 07:40] LABS: CALCIUM 6.1 mg/dL (8.8-10.2)
[2017-04-20] MEDS ORDERED: CALCIUM GLUCONATE 2 GM in NS 100 ML IV ONE (07:56)
[2017-04-20] MEDS ORDERED: MAGNESIUM SULFATE 2 GM/S.W.I. 2 GM/50 ML IVPB IV ONE (07:57)
[2017-04-20] MEDS: POTASSIUM CHLORIDE 20 MEQ/SWI 20 MEQ/100 ML IVPB IV SCH ×2 (08:50→13:01)
[2017-04-20] MEDS: DOXYCYCLINE PO SCH ×2 (09:07→23:04)
[2017-04-20] MEDS: CULTURELLE PO SCH ×2 (09:07→23:04)
[2017-04-20] MEDS: ASPIRIN EC PO SCH (09:07)
[2017-04-20] MEDS: COREG PO SCH ×2 (09:07→23:04)
[2017-04-20] MEDS: OSCAL 500 + D PO SCH ×3 (09:09→17:11)
[2017-04-20] MEDS: D5W 1,000 ML IV SCH ×2 (13:03→23:02)
[2017-04-20] MEDS ORDERED: GOLYTELY PO ONE (14:00)
[2017-04-20] MEDS: ZOCOR PO SCH (23:04)
[2017-04-21] MEDS: CULTURELLE PO SCH ×4 (01:39→22:00)
[2017-04-21] MEDS: DOXYCYCLINE PO SCH ×4 (01:39→22:00)
[2017-04-21] MEDS: COREG PO SCH ×4 (01:39→22:00)
[2017-04-21] MEDS: ZOCOR PO SCH ×2 (01:40→22:00)
[2017-04-21] MEDS: DUONEB (A & A) INH SCH ×4 (03:25→22:50)
[2017-04-21] MEDS: ZOSYN 2.25 GM in NS 50 ML IV SCH ×4 (04:49→23:13)
[2017-04-21] MEDS: D5W 1,000 ML IV SCH ×2 (06:10→10:27)
[2017-04-21 06:34] LABS: HEMATOCRIT 28.8 % (42.0-52.0); HEMOGLOBIN 9.2 g/dL (14.0-18.0); MCH 29.3 PG (27-31); MCHC 31.9 g/dL (33-37); MCV 91.7 FL (81-99); MPV 11.3 FL (7.4-10.4); RBC 3.14 XMIL (4.7-6.1)
[2017-04-21 07:48] LABS: ALBUMIN 2.1 g/dL (3.5-5.0); CALCIUM 5.9 mg/dL (8.8-10.2); POTASSIUM 3.4 mmol/L (3.5-5.1)
[2017-04-21] MEDS ORDERED: CALCIUM GLUCONATE 2 GM in NS 100 ML IV ONE (07:56)
--- NOTE | 2017-04-21 08:22 | Diag Imaging Result Doc PS360 ---
EXAM: CHEST-PORTABLE HISTORY: dyspnea TECHNIQUE: AP portable at 0500 COMMENT: The right pleural effusion has increased in volume since 04/17/2017. There is more compressive atelectasis of the right base. The inspiration is less optimal. IMPRESSION: Increased right pleural effusion. Electronically signed by Mando Flores 04/21/2017 8:19 AM
[2017-04-21] MEDS: ASPIRIN EC PO SCH ×2 (10:28→13:35)
[2017-04-21] MEDS: OSCAL 500 + D PO SCH ×3 (10:28→17:33)
[2017-04-21] MEDS: NS 1,000 ML IV SCH (11:28)
[2017-04-21] MEDS ORDERED: DULCOLAX PR ONE (17:19)
[2017-04-22] MEDS: NS 1,000 ML IV SCH ×2 (00:12→12:02)
[2017-04-22] MEDS: DUONEB (A & A) INH SCH ×4 (04:09→23:01)
[2017-04-22] MEDS: ZOSYN 2.25 GM in NS 50 ML IV SCH ×4 (04:37→21:59)
[2017-04-22 07:17] LABS: ALBUMIN 2.4 g/dL (3.5-5.0); POTASSIUM 3.7 mmol/L (3.5-5.1)
[2017-04-22] MEDS ORDERED: VANCOMYCIN 1 GM/NS 1 GM/250 ML IVPB IV SCH (09:00)
[2017-04-22] MEDS: OSCAL 500 + D PO SCH ×3 (10:02→16:47)
[2017-04-22] MEDS: DOXYCYCLINE PO SCH ×3 (10:03→21:56)
[2017-04-22] MEDS ORDERED: CALCIUM GLUCONATE 2 GM in NS 100 ML IV ONE (11:32)
[2017-04-22] MEDS: COREG PO SCH ×2 (11:56→21:55)
[2017-04-22] MEDS: ASPIRIN EC PO SCH (11:56)
[2017-04-22] MEDS: CULTURELLE PO SCH ×2 (11:56→21:56)
[2017-04-22] MEDS: ZOFRAN IV PRN ×2 (12:09→21:52)
[2017-04-22 12:29] LABS: BASO% 0.2 % (0.0-0.8); EOS# 0.01 X1000 (0.0-0.7); EOS% 0.1 % (0.0-10.0); HEMATOCRIT 32.3 % (42.0-52.0); HEMOGLOBIN 10.2 g/dL (14.0-18.0); IMM GRAN# 0.43 X1000 (0.0-0.04); IMM GRAN% 4.2 % (0.0-0.5); LYMPH# 0.91 X1000 (1.2-3.4); LYMPH% 8.8 % (20.5-51.1); MANUAL DIFF NEEDED? YES; MCH 28.3 PG (27-31); MCHC 31.6 g/dL (33-37); MCV 89.7 FL (81-99); MONO% 5.8 % (1.7-9.3); MPV 9.7 FL (7.4-10.4); NEUT% 80.9 % (42.2-75.2); PLT 192 X1000 (130-400)
[2017-04-22 12:58] LABS: BANDS 1 % (0-1); LYMPHS 9 % (21-51); MONO 3 % (1-9)
[2017-04-22] MEDS ORDERED: CITRATE OF MAGNESIA PO ONE (18:00)
[2017-04-22] MEDS: ZOCOR PO SCH (21:56)
[2017-04-23] MEDS: NS 1,000 ML IV SCH ×2 (00:39→11:09)
[2017-04-23] MEDS: DUONEB (A & A) INH SCH ×4 (03:32→21:29)
[2017-04-23] MEDS: ZOSYN 2.25 GM in NS 50 ML IV SCH ×4 (05:41→23:07)
[2017-04-23 06:19] LABS: MANUAL DIFF NEEDED? NO
[2017-04-23 06:31] LABS: BASO% 0.4 % (0.0-0.8); EOS# 0.01 X1000 (0.0-0.7); EOS% 0.1 % (0.0-10.0); HEMATOCRIT 30.6 % (42.0-52.0); HEMOGLOBIN 9.6 g/dL (14.0-18.0); IMM GRAN# 0.27 X1000 (0.0-0.04); IMM GRAN% 3.2 % (0.0-0.5); LYMPH# 0.57 X1000 (1.2-3.4); LYMPH% 6.7 % (20.5-51.1); MCH 28.2 PG (27-31); MCHC 31.4 g/dL (33-37); MONO# 0.72 X1000 (0.11-0.59); MONO% 8.4 % (1.7-9.3); MPV 10.2 FL (7.4-10.4); NEUT% 81.2 % (42.2-75.2); PLT 186 X1000 (130-400)
[2017-04-23 06:50] LABS: ALBUMIN 2.4 g/dL (3.5-5.0); POTASSIUM 3.5 mmol/L (3.5-5.1)
[2017-04-23 07:58] LABS: CALCIUM 5.8 mg/dL (8.8-10.2)
[2017-04-23] MEDS: CULTURELLE PO SCH ×2 (09:00→20:35)
[2017-04-23] MEDS: DOXYCYCLINE PO SCH ×2 (09:00→20:32)
[2017-04-23] MEDS ORDERED: FLEET ENEMA PR ONE (09:00)
[2017-04-23] MEDS: COREG PO SCH ×2 (09:00→20:32)
[2017-04-23] MEDS: OSCAL 500 + D PO SCH (10:45)
[2017-04-23] MEDS ORDERED: DIPRIVAN 1% ONE (14:28)
[2017-04-23] MEDS ORDERED: XYLOCAINE-MPF 2% ONE (14:28)
[2017-04-23] MEDS: CALCIUM GLUCONATE 2 GM in NS 100 ML IV SCH ×2 (16:12→20:33)
[2017-04-23] MEDS: VITAMIN D PO SCH (18:33)
[2017-04-23] MEDS: ASPIRIN EC PO SCH (18:33)
[2017-04-23] MEDS: ZOCOR PO SCH (20:32)
[2017-04-24] MEDS: DUONEB (A & A) INH PRN (00:22)
[2017-04-24] MEDS: NS 1,000 ML IV SCH ×2 (03:30→14:09)
[2017-04-24] MEDS: DUONEB (A & A) INH SCH ×4 (04:09→21:25)
[2017-04-24] MEDS: ZOSYN 2.25 GM in NS 50 ML IV SCH ×3 (05:37→21:18)
[2017-04-24 07:04] LABS: BASO% 0.5 % (0.0-0.8); HEMATOCRIT 29.4 % (42.0-52.0); IMM GRAN# 0.29 X1000 (0.0-0.04); IMM GRAN% 4.4 % (0.0-0.5); LYMPH# 0.63 X1000 (1.2-3.4); LYMPH% 9.6 % (20.5-51.1); MANUAL DIFF NEEDED? YES; MCHC 30.6 g/dL (33-37); MCV 91.6 FL (81-99); MONO# 0.61 X1000 (0.11-0.59); MONO% 9.3 % (1.7-9.3); MPV 10.7 FL (7.4-10.4); NEUT% 76.2 % (42.2-75.2); PLT 184 X1000 (130-400); RBC 3.21 XMIL (4.7-6.1)
[2017-04-24 07:19] LABS: ALBUMIN 2.4 g/dL (3.5-5.0); LYMPHS 10 % (21-51); MONO 10 % (1-9); POTASSIUM 3.3 mmol/L (3.5-5.1)
[2017-04-24 07:47] LABS: CALCIUM 6.1 mg/dL (8.8-10.2)
--- NOTE | 2017-04-24 08:23 | Diag Imaging Result Doc PS360 ---
EXAM: CHEST-2 VIEWS - 04/24/2017 HISTORY: pneumonia TECHNIQUE: Chest two views COMPARISON: Portable exam of 04/21/2017 FINDINGS: There are stable right inferior hemithorax opacification with loculated pleural fluid. There is stable mild prominence of infrahilar markings on the left. There is no pneumothorax. Heart size is stable. IMPRESSION: Stable exam compared to prior. Electronically signed by Shaheen Powell 04/24/2017 8:20 AM
[2017-04-24] MEDS: ASPIRIN EC PO SCH (09:12)
[2017-04-24] MEDS: CULTURELLE PO SCH ×2 (09:12→21:18)
[2017-04-24] MEDS: DOXYCYCLINE PO SCH ×2 (09:12→21:18)
[2017-04-24] MEDS: CALCIUM GLUCONATE 2 GM in NS 100 ML IV SCH ×2 (09:12→21:18)
[2017-04-24] MEDS: COREG PO SCH ×2 (09:12→21:18)
[2017-04-24] MEDS ORDERED: POTASSIUM CHLORIDE 60 MEQ in NS 500 ML IV ONE (12:30)
[2017-04-24] MEDS ORDERED: SOLU-MEDROL IV ONE (13:35)
[2017-04-24] MEDS: ZOCOR PO SCH (21:18)
[2017-04-25] MEDS: PHENERGAN IV PRN (00:19)
[2017-04-25] MEDS: DUONEB (A & A) INH PRN ×2 (01:27→07:25)
[2017-04-25] MEDS: NS 1,000 ML IV SCH (02:20)
[2017-04-25] MEDS: ZOSYN 2.25 GM in NS 50 ML IV SCH ×4 (02:20→20:56)
[2017-04-25] MEDS: DUONEB (A & A) INH SCH ×4 (03:55→21:35)
[2017-04-25 06:33] LABS: BASO% 0.3 % (0.0-0.8); HEMOGLOBIN 8.8 g/dL (14.0-18.0); IMM GRAN# 0.34 X1000 (0.0-0.04); IMM GRAN% 5.1 % (0.0-0.5); LYMPH# 0.63 X1000 (1.2-3.4); LYMPH% 9.4 % (20.5-51.1); MANUAL DIFF NEEDED? YES; MCH 27.9 PG (27-31); MCHC 30.3 g/dL (33-37); MCV 92.1 FL (81-99); MONO# 0.39 X1000 (0.11-0.59); MONO% 5.8 % (1.7-9.3); MPV 10.7 FL (7.4-10.4); NEUT% 79.4 % (42.2-75.2); PLT 179 X1000 (130-400); RBC 3.15 XMIL (4.7-6.1)
[2017-04-25 07:13] LABS: BANDS 2 % (0-1); LYMPHS 12 % (21-51); MONO 10 % (1-9)
[2017-04-25] MEDS ORDERED: NITROGLYCERIN TOP ONE ×2 (07:41→13:55)
[2017-04-25] MEDS ORDERED: MORPHINE IV PRN (07:42)
[2017-04-25 07:53] LABS: ALLEN TEST YES; BLOOD TYPE ARTERIAL; DRAW SITE R RADIAL; O2(CT) 12.9 mL/dL (15.0-23.0); PCO2(98.6) 34 mmHg (35-45); PO2(98.6) 66 mmHg (60-100); SAMPLE BLOOD; SAO2 95.2 % (95.0-100.0); THB 9.8 g/dL (11.5-17.4); pH(98.6) 7.37 (7.35-7.45)
[2017-04-25 07:54] LABS: MODALITY VENTIMASK
--- NOTE | 2017-04-25 07:58 | Diag Imaging Result Doc PS360 ---
EXAM: CHEST-1 VIEW HISTORY: sob TECHNIQUE: AP portable at 0750 upright COMMENT: There is a large right pleural effusion which has increased apparently in volume since the previous study of 04/24/2017. The inspiration is less optimal. There is hazy opacity over the left lower lung suggesting pulmonary edema. There is compressive atelectasis in the right lung particularly the lower lobe and middle lobe. IMPRESSION: Pleural effusion on the right which may be loculated. Mild pulmonary edema. Electronically signed by Mando Flores 04/25/2017 7:55 AM
[2017-04-25 08:10] LABS: ALBUMIN 2.6 g/dL (3.5-5.0); POTASSIUM 4.3 mmol/L (3.5-5.1)
[2017-04-25] MEDS: COREG PO SCH ×3 (08:18→20:56)
[2017-04-25] MEDS: CULTURELLE PO SCH ×3 (08:18→20:56)
[2017-04-25] MEDS: MORPHINE IV PRN ×2 (08:18→21:30)
[2017-04-25] MEDS: DOXYCYCLINE PO SCH (08:18)
[2017-04-25] MEDS: ASPIRIN EC PO SCH ×2 (08:18→08:33)
[2017-04-25] MEDS: CALCIUM GLUCONATE 2 GM in NS 100 ML IV SCH ×2 (08:19→21:30)
[2017-04-25] MEDS ORDERED: LASIX IV ONE ×2 (08:24→13:52)
[2017-04-25 09:16] LABS: CALCIUM 6.5 mg/dL (8.8-10.2)
[2017-04-25] MEDS: VANCOMYCIN 1 GM/NS 1 GM/250 ML IVPB IV SCH (10:18)
[2017-04-25] MEDS ORDERED: CALCIUM GLUCONATE 1 GM in NS 50 ML IV ONE (10:33)
[2017-04-25 10:38] LABS: INR 1.61; PROTIME 17.4 Seconds (9.2-11.7); PTT 39.5 Seconds (22.0-36.0)
--- NOTE | 2017-04-25 12:07 | Diag Imaging Result Doc PS360 ---
THORACENTESIS W/IMAGE GUIDANCE - 04/25/2017 INDICATION: enlarging right pleural effusion TECHNIQUE: The risks and benefits of the procedure were discussed with the patient. All questions were answered. Written and verbal informed consent was obtained. Overlying skin was prepped and draped in sterile fashion. Anesthesia was achieved with injection of 10 cc of 1% lidocaine. COMPARISON: Chest x-ray from earlier today FINDINGS: There is a moderately large localized pleural effusion at the anterior lateral right lung as seen on the chest x-ray from this morning. This area was drained with a 5-Kiswahili catheter. 850 mL was drained successfully. The patient reported no symptoms from the procedure. IMPRESSION: Successful and uncomplicated ultrasound-guided thoracentesis of the right pleural effusion. Electronically signed by Doyle Pittman 04/25/2017 12:05 PM
--- NOTE | 2017-04-25 12:11 | Diag Imaging Result Doc PS360 ---
CHEST-2 VIEWS - 04/25/2017 at 1200 INDICATION: POST RIGHT THORA TECHNIQUE: Inspiration expiration views COMPARISON: 07 50 FINDINGS: There has been drainage of the loculated right lateral pleural effusion. No pneumothorax. IMPRESSION: No complication. Electronically signed by Doyle Pittman 04/25/2017 12:08 PM
[2017-04-25 12:41] LABS: TOTAL PROT BODY FLUID 1.9 g/dL
[2017-04-25 13:12] LABS: DIFF NEEDED? YES; MONOS 92 %; POLYS 8 %; SPECIMEN PLEURAL FLUID; WBC BF 211 /cumm
[2017-04-25 18:26] LABS: URINE CULTURE NEEDED? NO; URINE MICRO REVIEW NEEDED? NO; URINE SOURCE CATH
[2017-04-25 18:30] LABS: BILIRUBIN URINE NEGATIVE (NEGATIVE); BLOOD URINE TRACE (NEGATIVE); COLOR STRAW; GLUCOSE URINE NEGATIVE (NEGATIVE); LEUKOCYTES URINE NEGATIVE (NEGATIVE); NITRITE URINE NEGATIVE (NEGATIVE); PH URINE 5.5; PROTEIN URINE NEGATIVE (NEGATIVE); SP GRAVITY URINE 1.005; TURBIDITY URINE CLEAR (CLEAR); UROBILINOGEN URINE NORMAL (NORMAL)
[2017-04-25 18:32] LABS: UR EPITHELIAL CELLS <10 /HPF (<10); URINE BACTERIA NEGATIVE /HPF; URINE RBC <10 /HPF (<10); URINE WBC <10 /HPF (<10)
[2017-04-25] MEDS: ZOCOR PO SCH (20:56)
[2017-04-26] MEDS: ZOSYN 2.25 GM in NS 50 ML IV SCH ×4 (01:45→21:15)
[2017-04-26] MEDS: DUONEB (A & A) INH SCH ×4 (03:57→20:35)
[2017-04-26 04:48] LABS: BE 2.5 mmoll (-3.0-3.0); BLOOD TYPE ARTERIAL; DRAW SITE R RADIAL; METHB 1.7 % (0.0-1.5); O2(CT) 12.5 mL/dL (15.0-23.0); PCO2(98.6) 36 mmHg (35-45); PO2(98.6) 169 mmHg (60-100); SAMPLE BLOOD; SAO2 99.1 % (95.0-100.0); THB 8.9 g/dL (11.5-17.4); pH(98.6) 7.47 (7.35-7.45)
[2017-04-26 04:49] LABS: ALLEN TEST YES; MODALITY BI PAP
[2017-04-26 06:48] LABS: BASO% 0.3 % (0.0-0.8); EOS# 0.02 X1000 (0.0-0.7); EOS% 0.3 % (0.0-10.0); HEMATOCRIT 31.5 % (42.0-52.0); HEMOGLOBIN 9.8 g/dL (14.0-18.0); IMM GRAN# 0.27 X1000 (0.0-0.04); LYMPH# 0.75 X1000 (1.2-3.4); MANUAL DIFF NEEDED? YES; MCH 28.3 PG (27-31); MCHC 31.1 g/dL (33-37); MONO# 0.69 X1000 (0.11-0.59); MONO% 10.1 % (1.7-9.3); MPV 10.1 FL (7.4-10.4); NEUT% 74.3 % (42.2-75.2); PLT 163 X1000 (130-400); RBC 3.46 XMIL (4.7-6.1)
[2017-04-26 07:13] LABS: BANDS 2 % (0-1); LYMPHS 8 % (21-51); MONO 6 % (1-9)
[2017-04-26 07:30] LABS: ALBUMIN 2.7 g/dL (3.5-5.0); CALCIUM 6.4 mg/dL (8.8-10.2); POTASSIUM 3.5 mmol/L (3.5-5.1)
[2017-04-26] MEDS: CALCIUM GLUCONATE 2 GM in NS 100 ML IV SCH (09:01)
[2017-04-26] MEDS: ASPIRIN EC PO SCH (09:01)
[2017-04-26] MEDS: CULTURELLE PO SCH ×2 (09:01→21:15)
[2017-04-26] MEDS: COREG PO SCH ×2 (09:01→21:15)
--- NOTE | 2017-04-26 09:20 | Diag Imaging Result Doc PS360 ---
EXAM: CHEST-1 VIEW HISTORY: SOB TECHNIQUE: AP portable upright at 0905 COMMENT: There is a large right pleural effusion. There is mild pulmonary edema seen in the left lower lobe. This has not changed appreciably since the previous study of 04/25/2017. IMPRESSION: Pulmonary edema with large right pleural effusion. Electronically signed by Mando Flores 04/26/2017 9:18 AM
[2017-04-26] MEDS ORDERED: LASIX IV ONE (13:34)
[2017-04-26] MEDS: ZOCOR PO SCH (21:15)
[2017-04-27] MEDS: ZOSYN 2.25 GM in NS 50 ML IV SCH ×4 (01:21→21:29)
[2017-04-27] MEDS: DUONEB (A & A) INH SCH ×4 (03:15→20:30)
[2017-04-27 06:33] LABS: BASO% 0.2 % (0.0-0.8); EOS# 0.03 X1000 (0.0-0.7); EOS% 0.5 % (0.0-10.0); HEMATOCRIT 34.3 % (42.0-52.0); HEMOGLOBIN 10.6 g/dL (14.0-18.0); IMM GRAN# 0.33 X1000 (0.0-0.04); IMM GRAN% 5.3 % (0.0-0.5); LYMPH# 0.82 X1000 (1.2-3.4); LYMPH% 13.1 % (20.5-51.1); MANUAL DIFF NEEDED? YES; MCH 28.1 PG (27-31); MCHC 30.9 g/dL (33-37); MONO# 0.56 X1000 (0.11-0.59); MPV 11.4 FL (7.4-10.4); NEUT% 71.9 % (42.2-75.2); PLT 136 X1000 (130-400); RBC 3.77 XMIL (4.7-6.1)
[2017-04-27 06:58] LABS: BANDS 4 % (0-1); LYMPHS 2 % (21-51); MONO 16 % (1-9)
--- NOTE | 2017-04-27 06:58 | Diag Imaging Result Doc PS360 ---
EXAM: CHEST-1 VIEW HISTORY: SOB TECHNIQUE: AP upright portable at 0515 COMMENT: There is a fairly large right pleural effusion. Compared to the previous study of 04/26/2017 there has been improvement in the perihilar pulmonary edema particularly on the right. IMPRESSION: Improved pulmonary edema. Electronically signed by Mando Flores 04/27/2017 6:56 AM
[2017-04-27 07:18] LABS: ALBUMIN 2.9 g/dL (3.5-5.0); CALCIUM 6.3 mg/dL (8.8-10.2); POTASSIUM 3.3 mmol/L (3.5-5.1)
[2017-04-27] MEDS: ASPIRIN EC PO SCH (09:20)
[2017-04-27] MEDS: COREG PO SCH ×2 (09:20→21:30)
[2017-04-27] MEDS: CULTURELLE PO SCH ×2 (09:20→21:29)
[2017-04-27] MEDS ORDERED: LASIX IV ONE (11:03)
[2017-04-27] MEDS: D5W 1,000 ML IV SCH ×2 (11:33→21:29)
[2017-04-27] MEDS: ZOCOR PO SCH (21:29)
[2017-04-27] MEDS: VANCOMYCIN 1 GM/NS 1 GM/250 ML IVPB IV SCH (22:28)
[2017-04-28] MEDS: DUONEB (A & A) INH SCH ×4 (03:10→21:44)
[2017-04-28] MEDS: ZOSYN 2.25 GM in NS 50 ML IV SCH ×4 (03:28→21:21)
[2017-04-28 06:38] LABS: BASO% 0.7 % (0.0-0.8); EOS# 0.04 X1000 (0.0-0.7); EOS% 0.7 % (0.0-10.0); HEMATOCRIT 33.7 % (42.0-52.0); HEMOGLOBIN 10.5 g/dL (14.0-18.0); IMM GRAN# 0.26 X1000 (0.0-0.04); IMM GRAN% 4.3 % (0.0-0.5); LYMPH% 14.7 % (20.5-51.1); MANUAL DIFF NEEDED? YES; MCH 27.7 PG (27-31); MCHC 31.2 g/dL (33-37); MCV 88.9 FL (81-99); MONO# 0.64 X1000 (0.11-0.59); MONO% 10.5 % (1.7-9.3); NEUT% 69.1 % (42.2-75.2); PLT 100 X1000 (130-400); RBC 3.79 XMIL (4.7-6.1)
[2017-04-28 06:55] LABS: LYMPHS 14 % (21-51); MONO 6 % (1-9)
[2017-04-28 07:06] LABS: ALBUMIN 2.9 g/dL (3.5-5.0); POTASSIUM 2.7 mmol/L (3.5-5.1)
[2017-04-28 07:33] LABS: CALCIUM 5.3 mg/dL (8.8-10.2)
[2017-04-28] MEDS ORDERED: CALCIUM GLUCONATE 2 GM in NS 100 ML IV ONE (08:33)
[2017-04-28] MEDS: D5W 1,000 ML IV SCH (10:04)
[2017-04-28] MEDS: CULTURELLE PO SCH ×2 (10:05→20:59)
[2017-04-28] MEDS: COREG PO SCH ×2 (10:05→20:59)
[2017-04-28] MEDS: ASPIRIN EC PO SCH (10:05)
[2017-04-28] MEDS ORDERED: LASIX IV ONE (13:32)
[2017-04-28] MEDS: POTASSIUM CHLORIDE 60 MEQ in NS 500 ML IV SCH (15:54)
[2017-04-28] MEDS: ZOCOR PO SCH (20:59)
[2017-04-28] MEDS: CALCIUM GLUCONATE 2 GM in NS 100 ML IV SCH (21:34)
[2017-04-29] MEDS: POTASSIUM CHLORIDE 60 MEQ in NS 500 ML IV SCH (02:46)
[2017-04-29] MEDS: ZOSYN 2.25 GM in NS 50 ML IV SCH ×4 (02:47→22:07)
[2017-04-29] MEDS: DUONEB (A & A) INH SCH ×4 (03:10→22:04)
[2017-04-29] MEDS: D5W 1,000 ML IV SCH ×3 (03:47→14:33)
[2017-04-29 06:47] LABS: BASO% 0.2 % (0.0-0.8); EOS# 0.02 X1000 (0.0-0.7); EOS% 0.3 % (0.0-10.0); HEMATOCRIT 30.6 % (42.0-52.0); HEMOGLOBIN 9.6 g/dL (14.0-18.0); IMM GRAN# 0.18 X1000 (0.0-0.04); IMM GRAN% 3.1 % (0.0-0.5); LYMPH# 1.05 X1000 (1.2-3.4); LYMPH% 17.9 % (20.5-51.1); MANUAL DIFF NEEDED? YES; MCH 27.9 PG (27-31); MCHC 31.4 g/dL (33-37); MONO# 0.68 X1000 (0.11-0.59); MONO% 11.6 % (1.7-9.3); MPV 12.4 FL (7.4-10.4); NEUT% 66.9 % (42.2-75.2); PLT 96 X1000 (130-400); RBC 3.44 XMIL (4.7-6.1)
[2017-04-29 07:16] LABS: EOS 1 % (1-10); LYMPHS 18 % (21-51); MONO 13 % (1-9); NRBC 1 % (0-0)
--- NOTE | 2017-04-29 07:39 | Diag Imaging Result Doc PS360 ---
EXAM: CHEST-1 VIEW HISTORY: pleural effusion TECHNIQUE: AP portable upright at 0715 COMMENT: There is a right pleural effusion. There is compressive atelectasis over the right lower and middle lobes. Minimal subsegmental atelectasis is present in the left lower lobe. The heart size is not enlarged. IMPRESSION: Right pleural effusion. Atelectasis. Possibility of an underlying pneumonia in the right middle lower lower lobes cannot be excluded. Electronically signed by Mando Flores 04/29/2017 7:37 AM
[2017-04-29] MEDS: CALCIUM GLUCONATE 2 GM in NS 100 ML IV SCH ×2 (10:45→22:07)
[2017-04-29] MEDS: ASPIRIN EC PO SCH (10:50)
[2017-04-29] MEDS: CULTURELLE PO SCH ×2 (10:50→22:07)
[2017-04-29] MEDS: COREG PO SCH ×2 (11:05→22:07)
[2017-04-29] MEDS: PREDNISONE PO SCH (15:06)
[2017-04-29] MEDS ORDERED: KLOR-CON PO ONE (21:34)
[2017-04-29] MEDS: ZOCOR PO SCH (22:07)
[2017-04-30] MEDS: DUONEB (A & A) INH SCH ×4 (03:13→21:25)
[2017-04-30] MEDS: D5W 1,000 ML IV SCH ×3 (03:16→17:31)
[2017-04-30] MEDS: ZOSYN 2.25 GM in NS 50 ML IV SCH ×3 (05:04→16:50)
[2017-04-30 05:23] LABS: ALLEN TEST YES; BE 2.4 mmoll (-3.0-3.0); BLOOD TYPE ARTERIAL; DRAW SITE R RADIAL; METHB 0.9 % (0.0-1.5); O2(CT) 15.8 mL/dL (15.0-23.0); PCO2(98.6) 38 mmHg (35-45); PO2(98.6) 125 mmHg (60-100); SAMPLE BLOOD; SAO2 99.5 % (95.0-100.0); THB 11.4 g/dL (11.5-17.4); pH(98.6) 7.45 (7.35-7.45)
[2017-04-30 05:24] LABS: MODALITY CANNULA
[2017-04-30] MEDS: PROTONIX PO SCH (06:30)
[2017-04-30 06:38] LABS: HEMATOCRIT 28.9 % (42.0-52.0); HEMOGLOBIN 9.2 g/dL (14.0-18.0); MCH 28.8 PG (27-31); MCHC 31.8 g/dL (33-37); MCV 90.3 FL (81-99); MPV 12.7 FL (7.4-10.4); RBC 3.2 XMIL (4.7-6.1)
[2017-04-30 08:04] LABS: ALBUMIN 2.7 g/dL (3.5-5.0); POTASSIUM 4.2 mmol/L (3.5-5.1); RANDOM VANCOMYCIN 12.8 ug/mL (5.0-80)
[2017-04-30 08:05] LABS: CALCIUM 6.1 mg/dL (8.8-10.2)
[2017-04-30] MEDS: CALCIUM GLUCONATE 2 GM in NS 100 ML IV SCH (10:22)
[2017-04-30] MEDS: PREDNISONE PO SCH (10:23)
[2017-04-30] MEDS: COREG PO SCH (10:23)
[2017-04-30] MEDS: ASPIRIN EC PO SCH (10:24)
[2017-04-30] MEDS: CULTURELLE PO SCH (10:24)
[2017-04-30] MEDS: VANCOMYCIN 1 GM/NS 1 GM/250 ML IVPB IV SCH (15:34)
[2017-04-30] MEDS: VITAMIN D PO SCH (15:54)
[2017-04-30] MEDS ORDERED: MAGNESIUM SULFATE 2 GM/S.W.I. 2 GM/50 ML IVPB IV ONE (21:53)
[2017-05-01] MEDS: ZOSYN 2.25 GM in NS 50 ML IV SCH ×5 (00:52→23:01)
[2017-05-01] MEDS: CULTURELLE PO SCH ×3 (01:47→23:02)
[2017-05-01] MEDS: D5W 1,000 ML IV SCH ×4 (01:48→23:53)
[2017-05-01] MEDS: ZOCOR PO SCH ×2 (01:48→23:02)
[2017-05-01] MEDS: COREG PO SCH ×3 (01:49→23:02)
[2017-05-01] MEDS: DUONEB (A & A) INH SCH ×4 (03:30→19:25)
[2017-05-01] MEDS: CALCIUM GLUCONATE 2 GM in NS 100 ML IV SCH ×3 (03:42→23:02)
[2017-05-01] MEDS ORDERED: MAGNESIUM SULFATE 2 GM/S.W.I. 2 GM/50 ML IVPB IV ONE (04:00)
[2017-05-01] MEDS: PROTONIX PO SCH ×2 (05:55→06:49)
[2017-05-01 06:32] LABS: HEMATOCRIT 30.8 % (42.0-52.0); HEMOGLOBIN 9.7 g/dL (14.0-18.0); MCH 28.9 PG (27-31); MCHC 31.5 g/dL (33-37); MCV 91.7 FL (81-99); MPV 12.1 FL (7.4-10.4); RBC 3.36 XMIL (4.7-6.1)
[2017-05-01 06:46] LABS: ALBUMIN 2.9 g/dL (3.5-5.0); CALCIUM 7.3 mg/dL (8.8-10.2); POTASSIUM 3.9 mmol/L (3.5-5.1)
[2017-05-01] MEDS: PREDNISONE PO SCH (09:41)
[2017-05-01] MEDS: ASPIRIN EC PO SCH (09:41)
[2017-05-02] MEDS: DUONEB (A & A) INH SCH ×4 (02:50→19:57)
[2017-05-02 03:16] LABS: HEMATOCRIT 27.2 % (42.0-52.0); HEMOGLOBIN 8.5 g/dL (14.0-18.0); MCH 28.3 PG (27-31); MCHC 31.3 g/dL (33-37); MCV 90.7 FL (81-99)
[2017-05-02 03:23] LABS: ALBUMIN 2.9 g/dL (3.5-5.0); CALCIUM 7.6 mg/dL (8.8-10.2); MAGNESIUM 1.7 mg/dL (1.5-2.7); POTASSIUM 5.1 mmol/L (3.5-5.1)
[2017-05-02 03:27] LABS: ALBUMIN 2.9 g/dL (3.5-5.0); CALCIUM 7.5 mg/dL (8.8-10.2); POTASSIUM 5.2 mmol/L (3.5-5.1)
[2017-05-02] MEDS: ZOSYN 2.25 GM in NS 50 ML IV SCH ×4 (04:27→23:49)
[2017-05-02] MEDS: D5W 1,000 ML IV SCH ×3 (04:27→21:47)
[2017-05-02] MEDS: CALCIUM GLUCONATE 2 GM in NS 100 ML IV SCH ×2 (09:03→21:48)
[2017-05-02] MEDS: PROTONIX PO SCH (09:04)
[2017-05-02] MEDS: PREDNISONE PO SCH (09:04)
[2017-05-02] MEDS: ASPIRIN EC PO SCH (09:04)
[2017-05-02] MEDS: COREG PO SCH ×2 (09:04→21:48)
[2017-05-02] MEDS: CULTURELLE PO SCH ×2 (09:04→21:48)
[2017-05-02] MEDS: VANCOMYCIN 1 GM/NS 1 GM/250 ML IVPB IV SCH (11:29)
[2017-05-02] MEDS: ZOCOR PO SCH (21:49)
[2017-05-03] MEDS: DUONEB (A & A) INH SCH ×4 (02:55→21:29)
[2017-05-03] MEDS: ZOSYN 2.25 GM in NS 50 ML IV SCH ×4 (04:20→23:06)
[2017-05-03] MEDS: PROTONIX PO SCH (06:33)
[2017-05-03 07:17] LABS: HEMATOCRIT 26.6 % (42.0-52.0); HEMOGLOBIN 8.2 g/dL (14.0-18.0); MCH 28.9 PG (27-31); MCHC 30.8 g/dL (33-37); MCV 93.7 FL (81-99); MPV 11.4 FL (7.4-10.4); RBC 2.84 XMIL (4.7-6.1)
[2017-05-03 08:14] LABS: ALBUMIN 2.9 g/dL (3.5-5.0); CALCIUM 7.9 mg/dL (8.8-10.2)
[2017-05-03 08:15] LABS: POTASSIUM 6.2 mmol/L (3.5-5.1)
[2017-05-03] MEDS ORDERED: KAYEXALATE PO ONE (08:29)
[2017-05-03] MEDS: D5W 1,000 ML IV SCH ×3 (09:19→21:07)
[2017-05-03] MEDS: CALCIUM GLUCONATE 2 GM in NS 100 ML IV SCH ×2 (09:19→20:59)
[2017-05-03] MEDS: PREDNISONE PO SCH (09:23)
[2017-05-03] MEDS: CULTURELLE PO SCH ×2 (09:23→21:00)
[2017-05-03] MEDS: ASPIRIN EC PO SCH (09:23)
[2017-05-03] MEDS: COREG PO SCH ×2 (09:23→21:00)
[2017-05-03 18:40] LABS: MAGNESIUM 1.3 mg/dL (1.5-2.7)
[2017-05-03 18:41] LABS: POTASSIUM 6.2 mmol/L (3.5-5.1)
[2017-05-03] MEDS ORDERED: ALBUTEROL 0.5% INH CONC FOR HYPERKALEMIA INH ONE (19:01)
[2017-05-03] MEDS ORDERED: D50W SYRINGE IV ONE (19:02)
[2017-05-03] MEDS ORDERED: HUMULIN R IV ONE (19:03)
[2017-05-03] MEDS: ZOCOR PO SCH (21:00)
[2017-05-04] MEDS: DUONEB (A & A) INH SCH ×4 (03:24→21:08)
[2017-05-04] MEDS: ZOSYN 2.25 GM in NS 50 ML IV SCH ×4 (04:02→23:25)
[2017-05-04 04:53] LABS: ALLEN TEST YES; BE -4.5 mmoll (-3.0-3.0); BLOOD TYPE ARTERIAL; DRAW SITE R RADIAL; METHB 2.1 % (0.0-1.5); O2(CT) 10.5 mL/dL (15.0-23.0); PCO2(98.6) 34 mmHg (35-45); PO2(98.6) 130 mmHg (60-100); SAMPLE BLOOD; SAO2 98.1 % (95.0-100.0); THB 7.6 g/dL (11.5-17.4); pH(98.6) 7.38 (7.35-7.45)
[2017-05-04 04:54] LABS: MODALITY CANNULA
[2017-05-04 07:07] LABS: HEMATOCRIT 27.5 % (42.0-52.0); HEMOGLOBIN 8.3 g/dL (14.0-18.0); MCH 28.6 PG (27-31); MCHC 30.2 g/dL (33-37); MCV 94.8 FL (81-99); MPV 11.3 FL (7.4-10.4); RBC 2.9 XMIL (4.7-6.1)
[2017-05-04] MEDS: PROTONIX PO SCH (07:11)
[2017-05-04 07:35] LABS: ALBUMIN 2.7 g/dL (3.5-5.0); CALCIUM 7.6 mg/dL (8.8-10.2)
[2017-05-04 07:55] LABS: POTASSIUM 6.4 mmol/L (3.5-5.1)
[2017-05-04] MEDS ORDERED: D50W SYRINGE IV ONE ×3 (08:33→23:00)
[2017-05-04] MEDS ORDERED: HUMULIN R SUBQ ONE ×2 (08:34→17:36)
[2017-05-04] MEDS ORDERED: ALBUTEROL 0.5% INH CONC FOR HYPERKALEMIA INH ONE ×2 (08:36→17:37)
--- NOTE | 2017-05-04 08:42 | Diag Imaging Result Doc PS360 ---
CHEST-PORTABLE - 05/04/2017 INDICATION: abnormal exam TECHNIQUE: COMPARISON: 04/29/2017 FINDINGS: There is increase in the right pleural effusion which is now moderate. There is also some increasing indeterminate infiltrate or atelectasis at the right lung base. Stable mass at the right hilum. The left lung remains clear. Heart size remains top normal. IMPRESSION: Worsening from prior. Electronically signed by Doyle Pittman 05/04/2017 8:40 AM
[2017-05-04] MEDS: D5W 1,000 ML IV SCH (09:27)
[2017-05-04] MEDS: CALCIUM GLUCONATE 2 GM in NS 100 ML IV SCH ×2 (09:30→21:49)
[2017-05-04] MEDS: CULTURELLE PO SCH ×2 (09:33→21:57)
[2017-05-04] MEDS: ASPIRIN EC PO SCH (09:33)
[2017-05-04] MEDS: COREG PO SCH ×2 (09:33→21:57)
[2017-05-04] MEDS: PREDNISONE PO SCH (09:33)
[2017-05-04] MEDS ORDERED: KAYEXALATE PO ONE ×2 (10:02→17:38)
[2017-05-04] MEDS ORDERED: LASIX IV ONE ×3 (10:04→22:00)
[2017-05-04] MEDS: VANCOMYCIN 1 GM/NS 1 GM/250 ML IVPB IV SCH (14:58)
[2017-05-04 17:10] LABS: CALCIUM 8.3 mg/dL (8.8-10.2); POTASSIUM 7.1 mmol/L (3.5-5.1)
[2017-05-04] MEDS: ZOCOR PO SCH (21:57)
[2017-05-04] MEDS ORDERED: ALBUTEROL NEB INH ONE (23:00)
[2017-05-04] MEDS ORDERED: HUMULIN R IV ONE (23:00)
[2017-05-04] MEDS: VELTASSA PO SCH (23:25)
[2017-05-05] MEDS: DUONEB (A & A) INH SCH ×4 (03:20→21:56)
[2017-05-05] MEDS: ZOSYN 2.25 GM in NS 50 ML IV SCH ×3 (04:40→15:30)
[2017-05-05 04:59] LABS: ALLEN TEST YES; BE -2.3 mmoll (-3.0-3.0); BLOOD TYPE ARTERIAL; DRAW SITE R RADIAL; PCO2(98.6) 33 mmHg (35-45); PO2(98.6) 125 mmHg (60-100); SAMPLE BLOOD; pH(98.6) 7.42 (7.35-7.45)
[2017-05-05 05:00] LABS: MODALITY CANNULA
[2017-05-05] MEDS: PROTONIX PO SCH (06:27)
[2017-05-05 07:15] LABS: BASO% 0.2 % (0.0-0.8); HEMATOCRIT 29.4 % (42.0-52.0); IMM GRAN# 0.45 X1000 (0.0-0.04); LYMPH# 1.47 X1000 (1.2-3.4); LYMPH% 9.8 % (20.5-51.1); MCH 28.3 PG (27-31); MCHC 30.6 g/dL (33-37); MCV 92.5 FL (81-99); MONO# 1.84 X1000 (0.11-0.59); MONO% 12.2 % (1.7-9.3); NEUT% 74.8 % (42.2-75.2); PLT 329 X1000 (130-400); RBC 3.18 XMIL (4.7-6.1)
[2017-05-05 07:26] LABS: POTASSIUM 5.3 mmol/L (3.5-5.1)
--- NOTE | 2017-05-05 07:31 | Diag Imaging Result Doc PS360 ---
EXAM: CHEST-1 VIEW HISTORY: pneumonia TECHNIQUE: AP portable at 0500 COMMENT: There are is a fairly large right pleural effusion. There is some improvement in the opacification the right lower lobe compared to 05/04/2017. The left lung is stable. IMPRESSION: Right pleural effusion. Improving pulmonary edema versus pneumonia right lower lobe. Electronically signed by Mando Flores 05/05/2017 7:29 AM
[2017-05-05 07:40] LABS: MANUAL DIFF NEEDED? NO
[2017-05-05] MEDS: CULTURELLE PO SCH ×2 (10:30→22:52)
[2017-05-05] MEDS: PREDNISONE PO SCH (10:41)
[2017-05-05] MEDS: ASPIRIN EC PO SCH (10:41)
[2017-05-05] MEDS: VELTASSA PO SCH (10:41)
[2017-05-05] MEDS: COREG PO SCH ×2 (10:43→22:52)
[2017-05-05] MEDS: CALCIUM GLUCONATE 2 GM in NS 100 ML IV SCH (11:40)
[2017-05-05] MEDS: MAG-OX PO SCH ×2 (14:36→22:52)
[2017-05-05] MEDS: ZOCOR PO SCH (22:52)
[2017-05-05] MEDS: LASIX PO SCH (22:52)
[2017-05-06] MEDS: DUONEB (A & A) INH SCH ×3 (03:14→15:30)
[2017-05-06] MEDS: PROTONIX PO SCH (06:06)
[2017-05-06 06:53] LABS: MANUAL DIFF NEEDED? NO
[2017-05-06 07:11] LABS: BASO% 0.2 % (0.0-0.8); EOS# 0.07 X1000 (0.0-0.7); EOS% 0.6 % (0.0-10.0); HEMOGLOBIN 7.9 g/dL (14.0-18.0); IMM GRAN# 0.29 X1000 (0.0-0.04); IMM GRAN% 2.3 % (0.0-0.5); LYMPH# 1.42 X1000 (1.2-3.4); LYMPH% 11.4 % (20.5-51.1); MCHC 30.4 g/dL (33-37); MCV 92.2 FL (81-99); NEUT% 73.5 % (42.2-75.2); PLT 283 X1000 (130-400); RBC 2.82 XMIL (4.7-6.1)
[2017-05-06 07:31] LABS: POTASSIUM 4.6 mmol/L (3.5-5.1)
[2017-05-06] MEDS: CULTURELLE PO SCH (09:44)
[2017-05-06] MEDS: PREDNISONE PO SCH (09:45)
[2017-05-06] MEDS: MAG-OX PO SCH (09:45)
[2017-05-06] MEDS: LASIX PO SCH (09:45)
[2017-05-06] MEDS: COREG PO SCH (09:45)
[2017-05-06] MEDS: VELTASSA PO SCH (09:45)
[2017-05-06] MEDS: ASPIRIN EC PO SCH (09:45)
[2017-05-06 15:06] VITALS: BP 130/72
== END 2017-05-06 17:12 | disposition home health service (06) ==
LOC: P.ED 14:41 → SUATTDRO 18:18 → P.ICU 18:18 → P.MEDSURG 04-10 12:41 → 3N 04-15 21:09
PROVIDERS: ATTEND Internal Medicine

== ENCOUNTER 2017-05-28 02:26 | Inpatient (IN) ==
[2017-05-28] MEDS ORDERED: DUONEB (A & A) INH ONE (03:02)
[2017-05-28] MEDS ORDERED: SOLU-MEDROL IV ONE (03:03)
[2017-05-28 03:22] LABS: BASO% 0.2 % (0.0-0.8); HEMOGLOBIN 9.1 g/dL (14.0-18.0); IMM GRAN# 0.69 X1000 (0.0-0.04); IMM GRAN% 2.9 % (0.0-0.5); LYMPH# 5.19 X1000 (1.2-3.4); LYMPH% 21.8 % (20.5-51.1); MANUAL DIFF NEEDED? NO; MCH 28.8 PG (27-31); MCHC 31.4 g/dL (33-37); MCV 91.8 FL (81-99); MONO# 1.85 X1000 (0.11-0.59); MONO% 7.8 % (1.7-9.3); MPV 10.5 FL (7.4-10.4); NEUT% 67.3 % (42.2-75.2); PLT 354 X1000 (130-400); RBC 3.16 XMIL (4.7-6.1)
[2017-05-28 03:27] LABS: ALBUMIN 3.5 g/dL (3.5-5.0); CALCIUM 7.4 mg/dL (8.8-10.2); POTASSIUM 3.6 mmol/L (3.5-5.1); TOTAL BILIRUBIN 0.33 mg/dL (0.20-1.00); TOTAL PROTEIN 6.9 g/dL (6.3-8.3)
--- NOTE | 2017-05-28 03:55 | PROVIDER DOCUMENTATION ---
This chart was entered by My Muñoz Scribe, acting as scribe for Mp Fermin MD. HPI-Respiratory General - General Stated Complaint: SOB Time Seen by Provider: 05/28/17 02:30 Source: patient Allergies/Adverse Reactions: Patient Allergies Allergy/AdvReac Type Severity Reaction Status Date / Time No Known Allergies Allergy Verified 05/28/17 03:12 Home Medications: Home Medication List Medication Instructions Recorded Confirmed Last Taken Type Anagrelide [Agrylin] 0.5 mg PO DAILY 03/13/17 05/28/17 05/27/17 History Carvedilol [Coreg] 12.5 mg PO BID 03/13/17 05/28/17 05/27/17 History Hydroxyurea [Hydrea] 500 mg PO DAILY 03/13/17 05/28/17 05/27/17 History Simvastatin 40 mg PO QHS 03/13/17 05/28/17 05/27/17 History Aspirin EC 81 mg PO DAILY 04/08/17 05/28/17 05/27/17 History Ergocalciferol (Vitamin D2) 50,000 unit PO Q7D #10 capsule 05/06/17 05/28/1711/08 Rx [Vitamin D] Furosemide [Lasix] 20 mg PO BID #20 tablet 05/06/17 05/28/17 05/27/17 Rx Lactobacillus Rhamnosus GG 1 each PO BID #60 capsule 05/06/17 05/28/17 05/27/17 Rx [Culturelle] Magnesium Oxide [Mag-Ox] 800 mg PO BID #60 tablet 05/06/17 05/28/17 05/27/17 Rx Pantoprazole [Protonix] 40 mg PO DAILY@0700 #30 tablet 05/06/17 05/28/17 Rx Prednisone 20 mg PO DAILY #5 tablet 05/06/17 05/28/17 05/27/17 Rx - History of Present Illness-Resp Nature of Presenting Problem: 71 year old M presents to the ED with a cc of shortness of breath with an onset of this morning. Pt has a hx of lung cancer with mets. Severity in ED: reports: severe Onset/Duration: reports: this morning Timing: reports: still present Current Respiratory Medication Therapy: Initiated see nurses note Associated Symptoms: reports: shortness of breath Similar Symptoms Previously?: Yes Recently seen or treated by another doctor?: No Review of Systems - Adult - REVIEW OF SYSTEMS - ADULT Constitutional: denies: chills, fever Eyes: reports: no symptoms reported Ears, Nose, Mouth & Throat: reports: no symptoms reported Cardiovascular: denies: chest pain, palpitations Respiratory: reports: shortness of breath. denies: cough Gastrointestinal: denies: abdominal pain, nausea, vomiting Genitourinary: reports: no symptoms reported Musculoskeletal: denies: muscle aches, muscle weakness Integumentary: denies: skin sores/ulcer, skin thickening Neurological: reports: no symptoms reported Psychiatric: reports: no symptoms reported Endocrine: reports: no symptoms reported Hematologic/Lymphatic: reports: no symptoms reported Allergic/Immunologic: reports: no symptoms reported All Other Systems: Reviewed and Negative Past History - Adult - PAST MEDICAL HISTORY-ADULT Review of Records: reports: Nursing Assessment Review, Medications Reviewed Major Childhood Illnesses: reports: denies history Cardiovascular: reports: HTN Respiratory: reports: cancer (lung) Gastrointestinal: reports: denies history Obstetrical/Gynecological: reports: denies history Genitourinary: reports: denies history Musculoskeletal: reports: denies history Neurological: reports: denies history Endocrine/Immune: reports: denies history Other Conditions: reports: denies history - PRIOR SURGERIES/PROCEDURES Surgical/Procedure History: reports: other (lung bx- adenocarcinoma) - IMMUNIZATION STATUS Childhood Immunizations: See Nurse Assessment Flu Vaccine: See Nurse Assessment - SOCIAL HISTORY Smoking: quit greater than 1 year Substance Use: none/never Alcohol Use Frequency: never Living Situation: family Physical Exam-General - PHYSICAL EXAM-ADULT Initial Vital Signs Reviewed: Yes - CONSTITUTIONAL General Appearance: alert, severe distress - RESPIRATORY Respiratory: respiratory distress, accessory muscle use, wheezing, other ( diaphramatic breathing) - CARDIOVASCULAR Cardiovascular: JVD, tachycardia - GASTROINTESTINAL (ABDOMEN) Abdominal Exam: non tender, soft - MUSCULOSKELETAL Extremity: normal inspection - SKIN Integumentary: diaphoresis - PSYCHIATRIC Psych/Mental Status: normal mood/affect, normal thought content, normal thought process, oriented x 3 Progress - PLAN OF CARE/RESULTS Progress/Plan/Lab Results: Vital Signs - 8 hr 05/28/17 03:02 Pulse Rate 135 H Respiratory Rate 20 Blood Pressure 172/120 O2 Sat by Pulse Oximetry 100 Laboratory Results - last 24 hr 05/28/17 05/28/17 02:48 02:48 WBC 23.86 H RBC 3.16 L Hgb 9.1 L Hct 29.0 L MCV 91.8 MCH 28.8 MCHC 31.4 L RDW Std Deviation 18.0 H Plt Count 354 MPV 10.5 H Immature Gran % (Auto) 2.9 H Neut % (Auto) 67.3 Lymph % (Auto) 21.8 [place] % (Auto) 7.8 Eos % (Auto) 0.0 Baso % (Auto) 0.2 Immature Gran # (Auto) 0.69 H Neut # (Auto) 16.09 H Lymph # (Auto) 5.19 H [place] # (Auto) 1.85 H Eos # (Auto) 0.00 Baso # (Auto) 0.04 Sodium 140 Potassium 3.6 Chloride 101 Carbon Dioxide 22 L Anion Gap 17 BUN 27 H Creatinine 1.7 H Estimated GFR/1.73 m2 48 BUN/Creatinine Ratio 16 Glucose 226 H Calculated Osmolality 292 Calcium 7.4 L Total Bilirubin 0.33 AST 48 H ALT 40 Alkaline Phosphatase 133 H Total Protein 6.9 Albumin 3.5 Globulin 3.4 Albumin/Globulin Ratio 1.0 Orders Category Date Time Status CHEST-PORTABLE [RAD] Stat Exams 05/28/17 03:01 Taken CBC WITH ELECTRONIC DIFF [HEME] Stat Lab 05/28/17 02:48 Completed COMPREHENSIVE METABOLIC PANEL [CHEM] Stat Lab 05/28/17 02:48 Completed Albuterol 2.5MG/Ipratrop 0.5MG [Duoneb (A & A)] Med 05/28/17 03:02 Discontinued 9 ml INH NOW ONE Methylprednisolone Sod Succ [Solu-Medrol] Med 05/28/17 03:03 Discontinued 125 mg IV NOW ONE Aerosol Treatments Routine Oth 05/28/17 03:03 Active Aerosol Treatments Stat Oth 05/28/17 03:03 Active BIPAP Stat Oth 05/28/17 03:18 Active Result Diagrams: 05/28/17 02:48 05/28/17 02:48 - EKG 1 Time of EKG reading by physician:: 02:21 EKG Read and Signed by:: Mp Fermin EKG Interpretation (*Must complete 3 of following elements*): Abnormal Rate: 153 Rhythm: sinus tachycardia with PACs ST Wave: non-specific ST changes (ST&T wave abnormality, consider inferolateral ischemia) - XRAY 1 XRAY Study: Chest Impression: Abnormal, See EMR Report - CONSULTS/PCP/HOSPITALIST Notification Time Discussed: 03:53 Departure - Departure Date of Disposition Decision: 05/28/17 Time of Disposition Decision: 03:54 DIAGNOSIS: Respiratory failure Qualifiers: Chronicity: acute on chronic Respiratory failure complication: hypoxia Qualified Code(s): J96.21 - Acute and chronic respiratory failure with hypoxia Disposition: ADMITTED INPATIENT 09 Certified Medical Emergency: Emergent Condition: Poor Referrals and Follow-Ups: None,PCP [Primary Care Provider] - - Critical Care Note This patient required my direct & personal management of CC.: Yes Total Time (mins): 30 Critical Care Statement: This patient required my direct personal management to treat or rule out processes, the absence of which, could potentiallly result in sudden, clinically significant life or limb threatening deterioration. Attestation - Physician/ HIRAM Attestation Patient care was provided by Advanced Practice Provider:: No The physician spent face to face time with patient:: Yes Advanced Practice Provider documentation review:: Supervising physician onsite and consulted in the evaluation and care of this patient. The physician did have a face to face encounter with the patient. This chart was documented by the indicated scribe, (My Muñoz Scribe) and accurately reflects the services I performed and decisions made by me, Mp Fermin MD, as attested by the provider's signature.
[2017-05-28] MEDS ORDERED: VANCOMYCIN 1 GM/NS 1 GM/250 ML IVPB IV ONE (04:51)
[2017-05-28] MEDS ORDERED: ZOSYN 3.375 GM in NS 50 ML IV ONE (04:52)
--- NOTE | 2017-05-28 05:33 | EKG Report ---
Test Performed on : 05/28/2017 02:21:39 AM Test Reason : No Order in [facility] for EKG Blood Pressure : / mmHG Vent. Rate : 153 BPM Atrial Rate : 153 BPM P-R Int : 132 ms QRS Dur : 096 ms QT Int : 328 ms P-R-T Axes : 030 -16 119 degrees QTc Int : 523 ms Sinus tachycardia. with premature atrial complexes. ST \T\ T wave abnormality, consider inferolateral ischemia Abnormal ECG When compared with ECG of 03-MAY-2017 08:25, premature atrial complexes. are now present Vent. rate has increased BY 56 BPM T wave inversion now evident in Anterior leads Unconfirmed Result
[2017-05-28] MEDS ORDERED: TYLENOL PO PRN (05:50)
[2017-05-28] MEDS ORDERED: ZOFRAN IV PRN (05:50)
--- NOTE | 2017-05-28 06:07 | HISTORY AND PHYSICAL ---
CHIEF COMPLAINT: Short of breath. HISTORY OF THE PRESENT ILLNESS: This is a 71-year-old, male with a past medical history of lung cancer, hypertension, thrombocytosis. Presented to the ER with increased shortness of breath x1 day. Of note, the patient was discharged last month after an extended stay in the hospital for increased shortness of breath. He was doing well until about a day ago. All of sudden, he just felt he could not breathe well, had labored breathing. Denies any coughing. Denies any fever or chills. No abdominal pain or chest pain. When he arrived to the ER, he was noted to have a heart rate of 153 and a respiratory rate of 20. He was immediately put on the BiPAP machine which seemed like it improved his breathing status. He denies using any home oxygen at this point. Further workup in the ER, he was noticed to have WBC of 23.8 and chest x-ray seemed like it was showing right side infiltrate versus pleural infusion. At this point, he is going to be admitted into the hospital for further evaluation for his symptoms. PAST MEDICAL HISTORY: Lung cancer with metastasis, hypertension, essential thrombocytosis. PAST SURGICAL HISTORY: Lung biopsy. FAMILY HISTORY: Noncontributory. SOCIAL HISTORY: He lives alone. He has family, mainly in the [place] area. Quit smoking and drinking about 13 years ago. ALLERGIES: Denies any known drug allergies. HOME MEDICATIONS: Agrylin 0.5 mg p.o. daily, aspirin 81 mg p.o. daily, Coreg 12.5 mg p.o. b.i.d., vitamin D 50,000 units p.o. every week, Lasix 20 mg p.o. b.i.d., hydroxyurea 500 mg p.o. daily, Culturelle 1 p.o. b.i.d., magnesium oxide 800 mg p.o. b.i.d., Protonix 40 mg daily, prednisone 20 mg p.o. daily, simvastatin 40 mg p.o. at bedtime. LABORATORY DATA: WBC 23.8, hemoglobin and hematocrit 9.1 and 29, platelets 354,000. Chemistry: Sodium 140, potassium 3.6, chloride 101, bicarb 22, BUN 27, creatinine 1.7, glucose 226. Liver enzymes within normal limits. Chest x-ray, looks like compared with old x-ray, looks like there is more peripheral effusion, possible infiltrate on the right side. The final report is still pending. REVIEW OF SYSTEMS: Denies any fever, chills, headache, blurred vision, dizziness, chest pain, coughing, abdominal pain, nausea, vomiting, diarrhea. Positive for shortness of breath and labored breathing. PHYSICAL EXAMINATION: VITAL SIGNS: Pulse rate 135, respiratory rate 20, blood pressure 172/120, and O2 saturation 100% on BiPAP machine. GENERAL: This is a 71-year-old, male who is lying in the bed and on the BiPAP mask, and answers questions appropriately. HEENT: Normocephalic, atraumatic. Pupils are equal, round, reactive to light. EOMI. NECK: Supple. No JVD. LUNGS: He has decreased breath sounds on the right side. No rales. No wheezing. No chest wall tenderness. HEART: Tachycardia. Regular S1 and S2, normal. No murmur. No rubs. ABDOMEN: Soft, nontender, nondistended. Bowel sounds present in 4 quadrants. EXTREMITIES: No clubbing. No cyanosis. No edema. No rash. NEUROLOGICAL: Alert and oriented x4. The cranial nerves are intact. Lower extremities and upper extremities have good strength. ASSESSMENT: 1. Shortness of breath, probably from the pleural effusion versus pneumonia. 2. Leukocytosis. 3. Lung cancer. 4. Hypertension. PLAN: The patient is going to be admitted to the inpatient on telemetry for his shortness of breath, whether shortness of breath is from the pleural effusions or infection. We are going to continue on the BiPAP machine. We will empirically treat with vancomycin and Zosyn, and start blood culture on the patient. A noncontrast CT was ordered. We will also consult pulmonology for further evaluation for his increased difficulty with breathing. Leukocytosis, whether it is from an infection or is from his chronically using of prednisone needed further investigation. Lung cancer seems like it is stable. He has not done any chemotherapy since discharge last month. At some point, we may need to consult his oncologist, Dr. Wiseman. We will repeat the labs in the morning. We are using SCDs for DVT prophylaxis. cc: Nayeli Lawson MD
--- NOTE | 2017-05-28 06:09 | Diag Imaging Result Doc PS360 ---
EXAM: CT THORAX W/O CONTRAST HISTORY: short of breath TECHNIQUE: CT chest without contrast. Dose reduction protocol. COMPARISON: 04/17/2017 FINDINGS: Interval increase in size in the moderate-sized right-sided pleural effusion. This may be loculated as the majority of the fluid is actually anterior and lateral to the right lung. There is an apparent right hilar mass which encircles the lower lobe bronchus as well as narrowing of the left upper lobe bronchus. Apparent collapse of the right middle lobe. There is worsening atelectasis to the right lung. Trace left pleural fluid and pericardial fluid. Heart is mildly prominent. No thoracic aortic aneurysm. Marked atherosclerosis in the left anterior descending artery. Minimal atelectasis in the left lower lobe. Tiny area of increased markings in the lingula of the left upper lobe. IMPRESSION: 1.Worsening atelectasis and infiltrates in the right lung with the mass encircling the upper and lower lobes bronchi and apparent collapse of the right middle lobe. 2.Worsening loculations in the right pleural fluid 3.Development of tiny infiltrates or atelectasis in the left lung Electronically signed by Abdoulaye Lopez 05/28/2017 6:07 AM
--- NOTE | 2017-05-28 07:27 | Diag Imaging Result Doc PS360 ---
CHEST-PORTABLE - 05/28/2017 INDICATION: resp failure TECHNIQUE: COMPARISON: 05/05/2017 FINDINGS: There is increase in size of the right basilar pleural effusion which is now large and occupies about 75% of the hemithorax. The left lung remains normally expanded and clear. Heart size is borderline enlarged. IMPRESSION: Increase in size of the large right pleural effusion. Electronically signed by Doyle Pittman 05/28/2017 7:24 AM
[2017-05-28 14:25] LABS: ALLEN TEST YES; BE 0.5 mmoll (-3.0-3.0); BLOOD TYPE ARTERIAL; DRAW SITE R RADIAL; O2(CT) 14.2 mL/dL (15.0-23.0); PCO2(98.6) 35 mmHg (35-45); PO2(98.6) 125 mmHg (60-100); SAMPLE BLOOD; SAO2 99.4 % (95.0-100.0); THB 10.2 g/dL (11.5-17.4); pH(98.6) 7.45 (7.35-7.45)
[2017-05-28 14:28] LABS: MODALITY BI PAP
[2017-05-28] MEDS: LEVAQUIN 500 MG/D5W 500 MG/100 ML IVPB IV SCH (15:00)
[2017-05-28] MEDS: MAXIPIME 1 GM in D5W 50 ML IV SCH (17:45)
--- NOTE | 2017-05-28 18:09 | PROGRESS NOTE ---
DATE: 05/28/2017 SUBJECTIVE: Mr. Arriaga this afternoon refers he was doing a little better. He got admitted because he developed acute onset of shortness of breath early this morning. And he came to the emergency department where he was examined and scanned, and a CT scan has shown worsening of a right pleural effusion with some loculations and also worsened atelectasis and infiltrates in the right lung with the mass encircling the upper and lower lobes bronchi and apparently collapse of the right middle lobe. OBJECTIVE: Vital signs: Blood pressure is 120/75, pulse of 121, respiration is 17, temperature is 99.1 degrees. General: Mr. Arriaga is a 71-year-old male. He looks frail and undernourished. Chronically sick. He was in bed. Mild respiratory distress. HEENT: Mucosa is pink and moist. Anicteric and acyanotic. Neck: Supple. There is JVD bilaterally with some distention of the superficial veins as well. Chest: Air entry is bilaterally reduced, more significantly to the right posterior lung, to the right hemithorax. There is there is dullness to percussion note on the posterior right lung base. There is also abolished vocal fremitus on that same hemithorax. Crepitations in both lower lungs. Cardiovascular: Tachycardic but no murmurs, no rubs, no gallops. Abdomen: Soft, nontender. There is no hepatosplenomegaly. Extremities: No pedal edema. AUDITOR IN CHARGE: Patient is awake and alert and oriented. There is no focal neurological deficit. LABORATORY DATA: WBC 33.86, hemoglobin is 9.1, platelet count of 354,000. Chemistry is reviewed. Creatinine is 1.7 which is remarkably better than his discharge creatinine which was 2.6. ASSESSMENT: 1. Acute onset of shortness of breath with worsening pleural effusions. 2. Right lung adenocarcinoma with possible obstruction of the bronchi. 3. Loculated pleural effusions. Would have to re-tap the fluid and possibly ask Surgery to do VATS with decortication. 4. Metastatic adenocarcinoma of the lung noted. 5. Generalized deconditioning and failure to thrive likely due to the underlying disease. 6. Leukocytosis with elevated plasma lactate. I think patient does have an underlying infection of the pleural fluid. He was treated before he left last month for 15 days with IV antibiotics. At the time his discharge WBC was about 12.45, so it has almost doubled. The patient had lab work on the 19 of May and WBC was 8.79 and today is 23.86. I think he definitely has some underlying infection. We are going to start him on cefepime with daptomycin. He just had a cycle of Zosyn and vancomycin so I prefer not to use the same antibiotics. He has also been started on levofloxacin by the pulmonary medicine team. 7. Acute renal failure. This seems to be gradually improving. Very sick gentleman with guarded prognosis cc: Gaudencio Ryder MD MTDD
[2017-05-28] MEDS ORDERED: DUONEB (A & A) INH PRN (18:51)
[2017-05-28] MEDS ORDERED: VENTOLIN HFA INH PRN (18:54)
[2017-05-28] MEDS: DUONEB (A & A) INH SCH ×2 (19:30→23:30)
[2017-05-28] MEDS: SYMBICORT 80/4.5 MICROGM INHALER INH SCH (19:30)
[2017-05-28] MEDS: CUBICIN 600 MG in NS 100 ML IV SCH (21:47)
[2017-05-28] MEDS: MAG-OX PO SCH (21:48)
[2017-05-28] MEDS: COREG PO SCH (21:48)
[2017-05-29] MEDS: DUONEB (A & A) INH SCH ×6 (03:47→22:47)
[2017-05-29 05:27] LABS: ALLEN TEST YES; BE 5.3 mmoll (-3.0-3.0); BLOOD TYPE ARTERIAL; DRAW SITE R RADIAL; METHB 1.2 % (0.0-1.5); O2(CT) 11.2 mL/dL (15.0-23.0); PCO2(98.6) 38 mmHg (35-45); PO2(98.6) 61 mmHg (60-100); SAMPLE BLOOD; SAO2 95.6 % (95.0-100.0); THB 8.5 g/dL (11.5-17.4); pH(98.6) 7.49 (7.35-7.45)
[2017-05-29 05:28] LABS: MODALITY CANNULA
--- NOTE | 2017-05-29 06:35 | Diag Imaging Result Doc PS360 ---
EXAM: CHEST-1 VIEW HISTORY: SOB TECHNIQUE: Portable AP COMPARISON: 05/28/2017 FINDINGS: There is a large right pleural effusion. There is atelectasis to the right lung and possibly and underlying infiltrate. Left lung is well expanded and clear. The overall appearance of the chest is similar to that of the prior exam. IMPRESSION: Stable chest. Electronically signed by Abdoulaye Lopez 05/29/2017 6:33 AM
[2017-05-29 06:42] LABS: MANUAL DIFF NEEDED? NO
[2017-05-29 06:55] LABS: BASO% 0.1 % (0.0-0.8); HEMATOCRIT 28.2 % (42.0-52.0); HEMOGLOBIN 8.7 g/dL (14.0-18.0); IMM GRAN% 4.5 % (0.0-0.5); LYMPH# 0.93 X1000 (1.2-3.4); LYMPH% 8.3 % (20.5-51.1); MCH 28.3 PG (27-31); MCHC 30.9 g/dL (33-37); MCV 91.9 FL (81-99); MONO# 0.91 X1000 (0.11-0.59); MONO% 8.1 % (1.7-9.3); MPV 10.5 FL (7.4-10.4); PLT 195 X1000 (130-400); RBC 3.07 XMIL (4.7-6.1)
[2017-05-29] MEDS: MAXIPIME 1 GM in D5W 50 ML IV SCH ×2 (06:57→19:57)
[2017-05-29 07:26] LABS: CALCIUM 7.3 mg/dL (8.8-10.2)
[2017-05-29] MEDS: SYMBICORT 80/4.5 MICROGM INHALER INH SCH ×2 (07:31→19:03)
[2017-05-29] MEDS: COREG PO SCH ×3 (07:42→20:06)
[2017-05-29] MEDS ORDERED: LASIX IV ONE (10:10)
--- NOTE | 2017-05-29 11:00 | Diag Imaging Result Doc PS360 ---
EXAM: CHEST-2 VIEWS HISTORY: POST RT THORACENTESIS TECHNIQUE: Inspiratory and expiratory, two views COMPARISON: Compared to a portable exam taken at 6:05 AM FINDINGS: Interval decrease in the size of the right-sided pleural effusion following the thoracentesis. There has been partial reexpansion of the right lung. No postprocedural pneumothorax. IMPRESSION: Decrease in the size of the right-sided pleural effusion with no postprocedural pneumothorax. Electronically signed by Abdoulaye Lopez 05/29/2017 10:58 AM
--- NOTE | 2017-05-29 11:06 | Diag Imaging Result Doc PS360 ---
EXAM: THORACENTESIS W/IMAGE GUIDANCE HISTORY: loculated pleural effusion TECHNIQUE: Ultrasound-guided thoracentesis COMPARISON: None. FINDINGS: Prior to the procedure I discussed the risk and benefits with the patient. Primary risks include: Bleeding, infection, and a pneumothorax which could require a chest tube. The patient's questions were answered. The patient then gave consent. The permit was signed. The largest collection of right pleural fluid was localized laterally in the right chest. This area was cleaned and draped in the normal fashion. Lidocaine was used as a local anesthetic. A needle and catheter were advanced into the pleural fluid on the first try. The catheter was withdrawn. Catheter was hooked to manual suction. Approximately 1 L of thin reddish fluid was withdrawn without difficulty. The patient had no complaints during or following the procedure. The catheter was withdrawn. A portion of the fluid was sent to the laboratory for analysis. IMPRESSION: Ultrasound-guided thoracentesis with no immediate postprocedural complication. Electronically signed by Abdoulaye Lopez 05/29/2017 11:03 AM
[2017-05-29] MEDS: LASIX PO SCH (11:29)
[2017-05-29] MEDS: MAG-OX PO SCH ×2 (11:29→20:06)
[2017-05-29 11:55] LABS: SPECIMEN PLEURAL FLUID
[2017-05-29 13:06] LABS: DIFF NEEDED? YES; MONOS 64 %; POLYS 36 %; WBC BF 284 /cumm
[2017-05-29] MEDS: LEVAQUIN 500 MG/D5W 500 MG/100 ML IVPB IV SCH (14:13)
--- NOTE | 2017-05-29 17:00 | PROGRESS NOTE ---
DATE: 05/29/2017 SUBJECTIVE: Today Mr. Arriaga refers to be doing a little better. He continues to have some residual shortness of breath and some weakness. OBJECTIVELY: Vitals: Blood pressure is 109/70, pulse of 108, respiration is 16, temperature is 98.1 degrees. General: Mr. Arriaga is a 71-year-old male. He was in bed. He did not seem to be in any remarkable distress. Mucosa is slightly pale, anicteric and acyanotic. Neck: Supple. There is some JVD bilateral. Chest: Air entry is bilaterally reduced, more so to the right posterior lung field. There are some bibasilar crepitations and dullness to percussion to the right posterior lung field. Cardiovascular: Slightly tachycardic, but no murmurs, no rubs. No gallops. Abdomen: Soft. Extremities: No pedal edema. CERTIFIED CONTROL SYSTEMS TECHNICIAN: Patient is awake, alert, oriented. There is no focal neurological deficit. LABORATORY DATA: WBC is down to 11.17, hemoglobin is 8.7, platelet count of 197,000. Chemistry is also reviewed. Sodium is 146, potassium is 3, chloride is 104, creatinine is 1.4. ASSESSMENT: 1. Acute onset of shortness of breath secondary to worsening pleural effusion. Patient is status post thoracentesis on the right, so far postprocedure chest x-ray looks remarkably improved. We will be waiting on the analysis on the fluid. 2. Right lung adenocarcinoma with possible obstruction of the bronchi. 3. Likely left pleural effusion status post tap. 4. Metastatic adenocarcinoma of the lung. 5. Generalized weakness and adult failure to thrive secondary to underlying malignancy. 6. Leukocytosis with elevated plasma lactate likely due to underlying infection. 7. Acute kidney acute kidney injury seems to be improving. 8. Mild hypokalemia with hypernatremia. I think this probably secondary to diuretic side effects. We will keep an eye on diet on these and replace the potassium. cc: Gaudencio Ryder MD
--- NOTE | 2017-05-29 21:09 | CONSULTATION ---
DATE OF CONSULTATION: 05/28/2017 REFERRING PHYSICIAN: Gaudencio Ryder MD CHIEF COMPLAINT: Shortness of breath. HISTORY OF PRESENT ILLNESS: This is a 71-year-old, male with past medical history of lung cancer, hypertension, thrombocytosis who presented to the emergency room with complaints of shortness of breath. He denies any fever or chills, cough, chest pain, abdominal pain, nausea, vomiting, or diarrhea. Diagnostics show a right-sided infiltrate versus pleural effusion. He has been admitted for further evaluation, management and treatment. REVIEW OF SYSTEMS: A 10-point review of systems was conducted. Pertinent noted on HPI, otherwise noncontributory. PAST MEDICAL HISTORY: As mentioned in HPI, otherwise noncontributory. PAST SURGICAL HISTORY: Lung biopsy. FAMILY HISTORY: Noncontributory. SOCIAL HISTORY: The patient lives at home alone, is a former smoker, former drinker and denies illicit drug use. ALLERGIES: No known drug allergies. ACTIVE MEDICATIONS: Tylenol, Ventolin, DuoNeb, Symbicort, Coreg, cefepime, daptomycin, Lasix, Levaquin, Mag-Ox, Zofran. PHYSICAL EXAMINATION: Vital Signs: Temperature 97.9, heart rate 89, respiratory rate 18, blood pressure 130/87, oxygen saturation 97%. General: Lying in bed, wearing BiPAP. Answers questions appropriately. No acute distress noted. HEENT: Normocephalic and atraumatic. PERRL. Cardiovascular: S1-S2 present. Chest: Reduced entry. Decreased breath sounds bilaterally. Abdomen: Bowel sounds present in all quadrants. Extremities: No edema noted. Neurologic: No focal deficits. LABS AND INVESTIGATIONS: WBC 23.86, RBCs 3.16, hemoglobin 9.1, hematocrit 29, platelet count 304,000. Sodium 140, potassium 3.6, chloride 101, CO2 22, anion gap 17, BUN 27 , creatinine 1.7, glucose 226. Blood gas reveals a pH 7.45, pCO2 of 35, PO2 of 125, HCO3 25.3, base excess 0.5, saturated oxygen 99. Chest CT performed 05/28/2017 shows worsening atelectasis and infiltrates in the right lung with a mass encircling the upper and lower lobe bronchi and apparent collapse of the right middle lobe. Worsening loculation in the right pleural fluid. Development of tiny infiltrates or atelectasis in the left lung. ASSESSMENT AND PLAN: This is a 71-year-old, male with past medical history mentioned in the HPI, that presented to the hospital with complaints of shortness of breath. Diagnostics show infiltrates in the right and left lung with worsening loculated pleural fluid. He also has leukocytosis, indicating that his respiratory failure is secondary to infectious cause. At this time, we will continue with BiPAP therapy, inhaled bronchodilators, IV antibiotics, IV Lasix. Further recommendations pending diagnostic studies. He has stage IV lung cancer, CHF, recent ARF improving. Likely will need pleurodesis. Thank you for the courtesy of this consult. Dictated by STEPHANIE Urbina for Chikis Pineda MD cc: STEPHANIE Urbina MD MTD
[2017-05-29] MEDS: CUBICIN 600 MG in NS 100 ML IV SCH (21:23)
[2017-05-29 22:12] LABS: TOTAL PROT BODY FLUID 3.1 g/dL
[2017-05-30] MEDS: DUONEB (A & A) INH SCH ×6 (03:14→23:23)
[2017-05-30 04:28] LABS: ALLEN TEST YES; BE 9.8 mmoll (-3.0-3.0); BLOOD TYPE ARTERIAL; DRAW SITE R RADIAL; METHB 1.1 % (0.0-1.5); O2(CT) 12.6 mL/dL (15.0-23.0); PCO2(98.6) 41 mmHg (35-45); PO2(98.6) 83 mmHg (60-100); SAMPLE BLOOD; SAO2 98.7 % (95.0-100.0); THB 9.3 g/dL (11.5-17.4); pH(98.6) 7.52 (7.35-7.45)
[2017-05-30 04:31] LABS: MODALITY CANNULA
[2017-05-30 06:37] LABS: MANUAL DIFF NEEDED? NO
[2017-05-30 06:51] LABS: BASO% 0.1 % (0.0-0.8); HEMATOCRIT 29.5 % (42.0-52.0); HEMOGLOBIN 9.2 g/dL (14.0-18.0); IMM GRAN# 0.34 X1000 (0.0-0.04); IMM GRAN% 3.4 % (0.0-0.5); MCH 28.6 PG (27-31); MCHC 31.2 g/dL (33-37); MCV 91.6 FL (81-99); MONO# 0.78 X1000 (0.11-0.59); MONO% 7.8 % (1.7-9.3); MPV 11.2 FL (7.4-10.4); NEUT% 77.7 % (42.2-75.2); PLT 163 X1000 (130-400); RBC 3.22 XMIL (4.7-6.1)
[2017-05-30 07:19] LABS: CALCIUM 7.4 mg/dL (8.8-10.2); POTASSIUM 2.9 mmol/L (3.5-5.1)
--- NOTE | 2017-05-30 07:35 | Diag Imaging Result Doc PS360 ---
EXAM: CHEST-1 VIEW INDICATION: SOB TECHNIQUE: One view COMPARISON: 05/29/2017 FINDINGS: The right basilar pleural effusion has increased in size modestly during the interval. Adjacent atelectasis and/or infiltrate is again noted. No new consolidation is identified. Cardiac silhouette is stable. IMPRESSION: Interval modest increase in size of the right basilar pleural effusion. Electronically signed by Aiden Wolfe 05/30/2017 7:33 AM
[2017-05-30] MEDS: LASIX PO SCH ×2 (07:48→08:55)
[2017-05-30] MEDS: MAXIPIME 1 GM in D5W 50 ML IV SCH ×2 (07:48→22:46)
[2017-05-30] MEDS: COREG PO SCH ×3 (07:48→22:45)
[2017-05-30] MEDS: MAG-OX PO SCH ×3 (07:48→22:45)
[2017-05-30] MEDS: SYMBICORT 80/4.5 MICROGM INHALER INH SCH ×2 (08:04→19:01)
[2017-05-30] MEDS ORDERED: KLOR-CON PO ONE (08:51)
[2017-05-30] MEDS: LEVAQUIN 500 MG/D5W 500 MG/100 ML IVPB IV SCH (14:28)
--- NOTE | 2017-05-30 19:03 | PROGRESS NOTE ---
DATE: 05/30/2017 SUBJECTIVELY: Mr. Arriaga refers to be doing a little better. Still has some residual shortness of breath according to him. His O2 saturation was a little low last night and they had to put him on the BiPAP. He does not like to be under the BiPAP. OBJECTIVE: Vital signs: Blood pressure is 90/61, pulse of 108, respirations 25, temperature is 98.4. General: Mr. Arriaga is a 71-year-old, gentleman. He is in bed. He does not seem to be in any distress. He looks frail and chronically ill. Mucosa is pink. Neck: Supple. Positive JVD bilateral. Chest: Air entry is bilaterally reduced. There is some bilateral crepitations and dullness to percussion to the right posterior lung field. Cardiovascular: Tachycardic, but no murmurs, no rubs. No gallops. Abdomen: Soft, nontender. There is no hepatosplenomegaly. Extremities: No pedal edema. TEST SKEIN WINDER: Patient is awake, alert and oriented. LABORATORY DATA: WBC is 10.04, hemoglobin is 9.2, platelet count is 163. Chemistries reviewed. Potassium is 2.9, creatinine is 1.6. Rest of chemistry is unremarkable. ASSESSMENT: 1. Acute onset of shortness of breath secondary to worsening pleural effusion. Patient is status post right thoracentesis. This morning, a chest x-ray still reveals a reaccumulation of the fluid. 2. Right lung adenocarcinoma with possible obstruction of the bronchi. 3. Right pleural fluid with predominantly lymphocytic cells, elevated LDH. This is concerning for malignant pleural effusion. It continues to be reaccumulating, and I think the plan would just be to either tap it again or get surgery to do a pleurodesis. 4. Metastatic adenocarcinoma of the lungs. 5. Generalized weakness with adult failure to thrive secondary to underlying malignancy. 6. Leukocytosis with elevated plasma lactate, likely due to underlying pneumonia. 7. Acute kidney injury. Stable. 8. Hypokalemia. Will continue to supplement this. So, in general, I think Mr. Arriaga is chronically sick. Has an underlying adenocarcinoma of the lung, which according to the Hematology-Oncology notes, has metastasizes. This is about the second time patient has been admitted in the last 2 months. I think the previous cytology was negative. We did send another cytology the last time with yesterday's fluid and we are pending the results. I think his prognosis is guarded. He has been having this recurrent, what seems to be malignant pleural effusions. He has been losing weight and his general medical condition continues to be declining. He wanted to discuss his current state of condition with his daughter, so I will give her a call and then we will go from there. We will replace his potassium and continue with the antibiotics for now. cc: Gaudencio Ryder MD
[2017-05-30] MEDS: CUBICIN 600 MG in NS 100 ML IV SCH (22:50)
[2017-05-31] MEDS: DUONEB (A & A) INH SCH ×6 (02:45→22:29)
[2017-05-31 04:44] LABS: ALLEN TEST YES; BLOOD TYPE ARTERIAL; DRAW SITE R RADIAL; METHB 1.4 % (0.0-1.5); O2(CT) 12.6 mL/dL (15.0-23.0); PCO2(98.6) 28 mmHg (35-45); PO2(98.6) 145 mmHg (60-100); SAMPLE BLOOD; SAO2 99.6 % (95.0-100.0); THB 9.1 g/dL (11.5-17.4)
[2017-05-31 04:46] LABS: MODALITY BI PAP; pH(98.6) 7.64 (7.35-7.45)
[2017-05-31 06:42] LABS: MANUAL DIFF NEEDED? NO
[2017-05-31 06:54] LABS: EOS# 0.02 X1000 (0.0-0.7); EOS% 0.2 % (0.0-10.0); HEMATOCRIT 27.1 % (42.0-52.0); HEMOGLOBIN 8.4 g/dL (14.0-18.0); IMM GRAN# 0.19 X1000 (0.0-0.04); LYMPH# 1.09 X1000 (1.2-3.4); LYMPH% 11.2 % (20.5-51.1); MCH 28.2 PG (27-31); MCV 90.9 FL (81-99); MONO# 0.75 X1000 (0.11-0.59); MONO% 7.7 % (1.7-9.3); MPV 11.2 FL (7.4-10.4); NEUT% 78.9 % (42.2-75.2); PLT 138 X1000 (130-400); RBC 2.98 XMIL (4.7-6.1)
[2017-05-31 07:18] LABS: CALCIUM 7.1 mg/dL (8.8-10.2)
[2017-05-31] MEDS: SYMBICORT 80/4.5 MICROGM INHALER INH SCH ×2 (07:24→19:05)
--- NOTE | 2017-05-31 07:53 | Diag Imaging Result Doc PS360 ---
CHEST-PORTABLE - 05/31/2017 INDICATION: dyspnea TECHNIQUE: COMPARISON: 05/30/2017 FINDINGS: Stable moderate to large large right basilar pleural effusion. Stable cardiomegaly. No significant infiltrates. IMPRESSION: No change from prior. Electronically signed by Doyle Pittman 05/31/2017 7:51 AM
[2017-05-31] MEDS ORDERED: KLOR-CON PO ONE (08:27)
[2017-05-31] MEDS: MAG-OX PO SCH ×2 (08:50→21:17)
[2017-05-31] MEDS: COREG PO SCH ×3 (08:51→21:18)
[2017-05-31] MEDS: MAXIPIME 1 GM in D5W 50 ML IV SCH ×2 (08:51→21:17)
--- NOTE | 2017-05-31 10:53 | ECHO REPORT ---
ORDER DATE: 05/30/2017 INTERPRETING PHYSICIAN: Mark Anthony Hicks MD. INDICATION: A 71-year-old male who shortness of breath. M-MODE MEASUREMENTS: Right ventricle: 3.2 cm. Left ventricle end diastole: 6.1 cm. Left ventricle end systole: 5.5 cm. Posterior wall: 1.2 cm. Interventricular septum: 1.1 cm. Left atrium: 3.6 cm. SUMMARY OF 2-DIMENSIONAL IMAGIN. The left ventricular chamber is dilated globally. Ejection fraction is estimated at 30%. 2. The inferior wall appeared to be akinetic. 3. The right ventricle is mildly to moderately enlarged. 4. The mitral valve shows a mild degree of regurgitation. Pulsed wave Doppler of mitral inflow shows fusion of the E and the A wave. The tissue Doppler of septal and lateral mitral annulus averages 4 cm. There is impaired left ventricular relaxation. 5. The aortic valve looks normal. Color flow mapping unremarkable. 6. The pulmonic valve looks normal. Color flow mapping indicates a mild degree of regurgitation. 7. The tricuspid valve shows a mild degree of regurgitation. Pulmonary pressure estimated at 34- 39 mmHg. 8. There is no pericardial effusion, masses, nor thrombus. SUMMARY: In summary, this study shows: 1. Dilatation of the left ventricle with significant impaired function. Ejection fraction is estimated at 25% to 30% with akinesis of the inferior wall. 2. A mild degree of tricuspid and mitral regurgitation. 3. Impaired left ventricular relaxation. 4. Pulmonary pressure estimated at 34-39 mmHg. 5. The aortic valve is normal. Clinical correlation recommended. cc: MD Gaudencio Serrato MD
[2017-05-31] MEDS: POTASSIUM CHLORIDE 20 MEQ/SWI 20 MEQ/100 ML IVPB IV SCH ×2 (11:03→13:00)
[2017-05-31] MEDS: LEVAQUIN 500 MG/D5W 500 MG/100 ML IVPB IV SCH (14:32)
--- NOTE | 2017-05-31 18:44 | PROGRESS NOTE ---
DATE: 05/31/2017 SUBJECTIVE: Today Mr. Arriaga refers to be doing relatively okay. Continues to have some shortness of breath. OBJECTIVE: Vital signs: Blood pressure is 100/62, pulse of 109, respiration is 20, temperature is 99 degrees. General: Mr. Arriaga 71-year-old male. He is in bed. Not seemingly distressed. HEENT: Mucosa is pink and moist. Anicteric. Acyanotic. Neck: Supple. There is positive JVD bilateral neck. Chest: Air entry is bilaterally reduced. There is some dullness to percussion to the right posterior lung field crepitations in both lung bases. Cardiovascular: Regular rate and rhythm. No murmurs, no rubs. No gallops. Abdomen: Soft, nontender. There is no hepatosplenomegaly. Extremities: No pedal edema. AUTOMATION MACHINE OPERATOR : Patient is awake, alert and oriented. There is no focal neurological deficit. LABORATORY DATA: WBC is 9.69, hemoglobin is 8.4, platelet count is 138,000. Chemistry is reviewed. Sodium is 143, potassium is 3.0, chloride 99, bicarb is 31, creatinine is 1.6, pro B is down to 14,190, lactate is normalized to 1.0. ASSESSMENT: 1. Acute onset of shortness of breath secondary to worsening pleural effusion. The patient is status post right thoracentesis. A liter of reddish fluid was removed as per interventional radiology 3 days ago. Subsequent chest x-ray has shown reaccumulation of the fluid. I think at this point something permanent needs to be done either a Pleur-Evac catheter to be left in there and patient taught how to intermittently open the valve for minimum drainage for symptomatic relief or the pleurodesis. We will discuss these options with his program arranger and oncologist and go from there. 2. Right lung adenocarcinoma with possible obstruction of the bronchi. 3. Right pleural fluid predominantly lymphocytic with elevated LDH suggestive of possible malignant effusion. We waiting on the cytology. 4. Metastatic adenocarcinoma of the lungs. A CT scan of the pelvis in March did show bony pelvic metastases. 5. Generalized weakness with adult failure to thrive secondary to underlying malignancy. 6. Leukocytosis with elevated and lactate suggestive of underlying infection ( possible pneumonia). Leukocytosis has improved. Lactate is resolved. Will continue with the current antibiotics. I have switch the IV daptomycin to p.o. levofloxacin since daptomycin does not cover lung pathology very well. 7. Acute kidney injury stable. 8. Hypokalemia, will continue to replace. 9. History of congestive heart failure with ejection fraction of 25-30%. The patient continues to have some dilated JVD. Will continue with his heart medications. 10. Mixed alkalosis. I think the metabolic part is probably due to diuretic therapy, I decreased this to 20 mg per day. Will repeat ABG and labs for tomorrow morning. 11. Prognosis continues to be extremely poor and guarded. Today I spoke with Mr. Arriaga's daughter Daenne in [place] the phone #. Did explain to her the possibility of leaving a catheter in the pleural space and the fact that Mr. Arriaga's overall prognosis is poor. Mr. Arriaga continues to be full code. cc: Gaudencio Ryder MD MTDD
[2017-05-31] MEDS: ZYVOX PO SCH (21:20)
[2017-06-01] MEDS: DUONEB (A & A) INH SCH ×6 (03:17→22:33)
[2017-06-01 05:12] LABS: ALLEN TEST YES; BE 5.8 mmoll (-3.0-3.0); BLOOD TYPE ARTERIAL; DRAW SITE R RADIAL; O2(CT) 16.1 mL/dL (15.0-23.0); PCO2(98.6) 40 mmHg (35-45); PO2(98.6) 64 mmHg (60-100); SAMPLE BLOOD; SAO2 94.7 % (95.0-100.0); THB 12.5 g/dL (11.5-17.4); pH(98.6) 7.48 (7.35-7.45)
[2017-06-01 05:14] LABS: MODALITY CANNULA
[2017-06-01 07:04] LABS: MANUAL DIFF NEEDED? NO
[2017-06-01 07:15] LABS: BASO% 0.1 % (0.0-0.8); EOS# 0.02 X1000 (0.0-0.7); EOS% 0.2 % (0.0-10.0); HEMATOCRIT 29.8 % (42.0-52.0); HEMOGLOBIN 9.3 g/dL (14.0-18.0); IMM GRAN# 0.18 X1000 (0.0-0.04); IMM GRAN% 1.9 % (0.0-0.5); LYMPH# 1.17 X1000 (1.2-3.4); MCH 28.7 PG (27-31); MCHC 31.2 g/dL (33-37); MONO# 0.76 X1000 (0.11-0.59); MONO% 7.8 % (1.7-9.3); MPV 11.8 FL (7.4-10.4); PLT 160 X1000 (130-400); RBC 3.24 XMIL (4.7-6.1)
[2017-06-01] MEDS: SYMBICORT 80/4.5 MICROGM INHALER INH SCH ×2 (07:24→20:03)
[2017-06-01 07:42] LABS: CALCIUM 7.2 mg/dL (8.8-10.2)
[2017-06-01 08:01] LABS: POTASSIUM 3.9 mmol/L (3.5-5.1)
--- NOTE | 2017-06-01 08:18 | Diag Imaging Result Doc PS360 ---
CHEST-1 VIEW - 06/01/2017 INDICATION: SOB TECHNIQUE: COMPARISON: 05/31/2017 FINDINGS: There is a stable relatively large right pleural effusion. No mediastinal shift. Stable cardiomegaly. The left lung is clear. IMPRESSION: No change from prior. Electronically signed by Doyle Pittman 06/01/2017 8:15 AM
--- NOTE | 2017-06-01 08:18 | CONSULTATION ---
DATE OF CONSULTATION: 06/01/2017 SUBJECTIVE: Mr. Wyatt Arriaga is a 71-year-old black male, who has a history of metastatic adenocarcinoma right lung. He has been seen by Dr. Pineda and Dr. Lissa Wiseman. He has received 2 treatments of chemotherapy, but I think those have been interrupted because of him not tolerating them well. He presented to our emergency department on 05/28/2017 with shortness of breath and an elevated white blood cell count. Chest CT showed fluid right chest. He underwent an ultrasound thoracentesis by radiology, which suggested that this was not infected fluid. A liter was removed and this was on 05/29/2017. Over the last 3 days this fluid has reaccumulated, and we are asked to evaluate him for possible chest tube. With IV antibiotics, his white blood cell count has returned to normal, and he states that his shortness of breath since admission is much improved. He is on 2 L nasal cannula O2. OBJECTIVE: General: On exam, Mr. Arriaga is a slim black male, who is awake and appears to be comfortable with 2 [address] cann[address] in place. HEENT Exam: No jaundice. No oral lesions. No cervical or supraclavicular lymphadenopathy. Heart: Has a regular rate. He has decreased breath sounds right lung. There is no work of breathing this morning. Abdomen: Soft, nontender, without palpable mass. Rectal Exam: Was not performed. Extremities: He does have palpable femoral pulses. No significant peripheral edema. Neurological: He has no focal deficit. DIAGNOSTIC DATA: His white blood cell count is now normal. Blood gas yesterday showed a pH of 7.48, pCO2 of 40, PaO2 of 64 and that is on nasal cannula. His chest x-ray does show a right pleural effusion. It appears to be approximately the same as on his admission. The fluid has reaccumulated since thoracentesis. His white blood cell count is now normal status post treatment with IV antibiotics. IMPRESSION: Right pleural effusion in a patient with metastatic adenocarcinoma right lung. It appears that his symptoms of shortness of breath have improved with intravenous antibiotics despite reaccumulation of his right pleural effusion status post thoracentesis. PLAN: Will be patient about placing the chest tube since his pulmonary function has improved since admission. We will follow him clinically and review his chest x-rays. cc: Mariella Das MD
[2017-06-01] MEDS: MAXIPIME 1 GM in D5W 50 ML IV SCH ×2 (09:18→21:09)
[2017-06-01] MEDS: COREG PO SCH ×3 (09:19→21:11)
[2017-06-01] MEDS: LASIX PO SCH (09:19)
[2017-06-01] MEDS: ZYVOX PO SCH ×2 (09:19→21:10)
[2017-06-01] MEDS: MAG-OX PO SCH ×2 (09:19→21:09)
[2017-06-01] MEDS: LEVAQUIN 500 MG/D5W 500 MG/100 ML IVPB IV SCH (14:30)
--- NOTE | 2017-06-01 16:42 | PROGRESS NOTE ---
DATE: 06/01/2017 SUBJECTIVE: Today, Mr. Arriaga referred to be doing fairly okay. Still has some residual shortness of breath, but not as much as when he came in. OBJECTIVE: Vital signs: Blood pressure is 96/54, pulse is 113, respiration is 17, temperature 99.4 degrees. General: Mr. Arriaga is a 71-year-old male. He is in bed, not seemingly distressed. He is on nasal cannula. Saturating very adequately. Neck: Supple. There is bilateral JVD. Chest: Air entry is bilaterally reduced. There is some dullness to percussion to the right posterior lung field. There are bilateral posterior wet crepitations Cardiovascular: Regular rate and rhythm. Abdomen: Soft. No hepatosplenomegaly. Extremities: No pedal edema. ROTARY ADJUSTER: Patient is awake, alert and oriented x4. There is no focal neurological deficit. LABORATORY DATA: WBC is 9.71, hemoglobin is 9.3, platelet count of 160,000. Chemistries reviewed. ABG: PH 7.48, pCO2 40, PaO2 is 64, patient was on nasal cannula. Sodium is 141, potassium is 3.9, chloride is 98, bicarb is 27, creatinine is 1.7. DIAGNOSTIC STUDIES: Chest x-ray this morning shows stable, relatively large right pleural effusion. No mediastinal shift. Stable cardiomegaly left lung is clear. ASSESSMENT: 1. Acute onset of shortness of breath secondary to worsening pleural effusion. Patient is status post right thoracentesis four days ago; however, subsequent chest x-ray seems to show reaccumulation of the fluid. Patient has been evaluated by Surgery and there is a plan for chest tube placement and pleurodesis, hopefully tomorrow. 2. Right lung adenocarcinoma with possible obstruction of the bronchi. 3. Right pleural effusion. Predominantly lymphocytic with elevated LDH suggestive of possible malignant infusion. We are still waiting on cytology. 4. Metastatic adenocarcinoma of the lungs. A CT scan of the pelvis in March did show bony pelvic metastases. The patient also has a history of prostate adenocarcinoma. 5. Generalized weakness with failure to thrive secondary to underlying malignancy. 6. Leukocytosis with elevated lactate on presentation suggestive of infection. We think this is probably pneumonia. White count and lactate have improved. We will continue with the current antibiotics. 7. Acute kidney injury. Stable. 8. Hypokalemia. Improved. 9. History of congestive heart failure with ejection fraction of 25-30%. The patient continues to have some dilated JVD. We will continue with p.o. diuretics. 10. Mixed alkalosis, improved. 11. Poor prognosis. Patient does have metastatic lung cancer, recurrent pleural effusions, severe heart failure with generalized weakness and failure to thrive, all of which put him in a very poor prognosis. However at this point, the patient prefers to continue want therapy for the underlying malignancy and he does not want to go on any hospice. cc: Gaudencio Ryder MD [facility]
[2017-06-02] MEDS: DUONEB (A & A) INH SCH ×6 (03:08→22:41)
[2017-06-02 05:13] LABS: ALLEN TEST YES; BE 5.9 mmoll (-3.0-3.0); BLOOD TYPE ARTERIAL; DRAW SITE R RADIAL; METHB 1.6 % (0.0-1.5); O2(CT) 11.3 mL/dL (15.0-23.0); PCO2(98.6) 39 mmHg (35-45); PO2(98.6) 80 mmHg (60-100); SAMPLE BLOOD; SAO2 97.8 % (95.0-100.0); THB 8.4 g/dL (11.5-17.4); pH(98.6) 7.49 (7.35-7.45)
[2017-06-02 05:14] LABS: MODALITY CANNULA
[2017-06-02 06:49] LABS: MANUAL DIFF NEEDED? NO
[2017-06-02 07:22] LABS: BASO% 0.1 % (0.0-0.8); EOS# 0.01 X1000 (0.0-0.7); EOS% 0.1 % (0.0-10.0); HEMOGLOBIN 8.5 g/dL (14.0-18.0); IMM GRAN% 2.2 % (0.0-0.5); LYMPH# 1.03 X1000 (1.2-3.4); LYMPH% 11.2 % (20.5-51.1); MCH 28.7 PG (27-31); MCHC 31.5 g/dL (33-37); MCV 91.2 FL (81-99); MONO# 0.76 X1000 (0.11-0.59); MONO% 8.2 % (1.7-9.3); MPV 10.8 FL (7.4-10.4); NEUT% 78.2 % (42.2-75.2); PLT 137 X1000 (130-400); RBC 2.96 XMIL (4.7-6.1)
[2017-06-02] MEDS: SYMBICORT 80/4.5 MICROGM INHALER INH SCH ×2 (07:25→19:30)
[2017-06-02 07:33] LABS: ALBUMIN 2.7 g/dL (3.5-5.0); CALCIUM 7.2 mg/dL (8.8-10.2); POTASSIUM 3.9 mmol/L (3.5-5.1)
--- NOTE | 2017-06-02 07:35 | Diag Imaging Result Doc PS360 ---
EXAM: CHEST-1 VIEW INDICATION: SOB TECHNIQUE: One view COMPARISON: 06/01/2017 FINDINGS: The relatively large right pleural effusion continues to increase in size. It may be partially loculated. There is further loss of aerated lung volume on the right. Cardiac silhouette is prominent but stable. IMPRESSION: Increasing right pleural effusion. Electronically signed by Aiden Wolfe 06/02/2017 7:33 AM
[2017-06-02] MEDS: COREG PO SCH ×2 (08:13→20:56)
[2017-06-02] MEDS: ZYVOX PO SCH ×2 (08:13→20:57)
[2017-06-02] MEDS: MAG-OX PO SCH ×2 (08:13→20:56)
[2017-06-02] MEDS: MAXIPIME 1 GM in D5W 50 ML IV SCH ×2 (08:13→20:57)
[2017-06-02] MEDS: LASIX PO SCH (08:14)
[2017-06-02] MEDS ORDERED: XYLOCAINE-MPF 1%/EPI 1:200,000 ONE ×2 (12:32→12:33)
[2017-06-02] MEDS ORDERED: ROBINUL ONE (12:40)
[2017-06-02] MEDS ORDERED: DIPRIVAN 1% ONE (12:40)
[2017-06-02] MEDS ORDERED: VERSED ONE (12:40)
[2017-06-02] MEDS ORDERED: XYLOCAINE-MPF 2% ONE (12:40)
--- NOTE | 2017-06-02 13:48 | Diag Imaging Result Doc PS360 ---
EXAM: CHEST-PORTABLE INDICATION: right chest tube placement TECHNIQUE: One view COMPARISON: 06/02/2017 FINDINGS: There is a newly placed right chest tube. The tube is at the base of the right hemithorax. Large pleural fluid collection seen on the previous study is approximately stable. There is no evidence of pneumothorax. No new consolidation is identified. There is stable cardiomegaly. IMPRESSION: Interval placement of right chest tube. Stable chest, otherwise. Electronically signed by Aiden Wolfe 06/02/2017 1:46 PM
[2017-06-02] MEDS: LEVAQUIN 500 MG/D5W 500 MG/100 ML IVPB IV SCH (15:57)
--- NOTE | 2017-06-02 16:35 | PROGRESS NOTE ---
DATE: 06/02/2017 SUBJECTIVE: Today Mr. Arriaga refers to be fairly fine. According to him, this morning he felt acute onset of shortness of breath, almost the same presentation that he had before he came in. OBJECTIVE: Vital signs: Blood pressure is 106/65, pulse is 119, respirations 20, temperature is 98.7 degrees. The patient is saturating 99% on room air. General: Mr. Arriaga is a 71-year-old male. He is in bed. He is not in any in any distress. ENT: Mucosa is slightly pale. Anicteric. Acyanotic. Neck: Supple. Positive. Chest: Air entry is bilaterally reduced. There is dullness to percussion noted to the right posterior lung field. There is also bilateral posterior wet crepitations. Cardiovascular: Tachycardic, but no murmurs, no rubs. No gallops. Abdomen: Soft, no hepatosplenomegaly. Extremities: No pedal edema. MATERIAL HANDLER FLOORPERSON: Patient is awake and alert and oriented. LABORATORY DATA: WBC is 9.23, hemoglobin is 8.5, platelet count is 137,000. Chemistry is reviewed and is unremarkable, except for creatinine 1.4, which has been stable. Cytology report on the pleural fluid is positive for malignancy. A chest x-ray this morning revealed worsening of right pleural effusion. ASSESSMENT: 1. Acute onset of shortness of breath on presentation, secondary to worsening pleural effusion. Patient had a thoracentesis done initially about 5 days ago on presentation; however, subsequent x-rays have shown remarkable increase and reaccumulation of the fluid. Surgery was consulted and a chest tube will be placed in today for adequate drainage and subsequently pleurodesis will be done hopefully tomorrow. 2. Malignant right-sided pleural effusion. Just today, we received the cytology report which is positive for malignant cells as was suspected. 3. Metastatic adenocarcinoma of the lungs with possible obstruction of the bronchi. Patient still wants to continue adjuvant therapy. 4. Generalized weakness and deconditioning. We will continue with physical therapy. 5. Suspected underlying pneumonia. We will continue with the current antibiotics for a total of 14 days. 6. Acute kidney injury. Creatinine is stable. 7. Hypokalemia, improved. 8. History of congestive heart failure with ejection of 25-30%. The patient continues to show some JVD dilation. We will continue with diuretic therapy. 9. A few runs of nonsustained ventricular tachycardia this morning. We will continue monitoring his heart beats. PLAN: So in general, I think Mr. Arriaga is a very complicated case. He has metastatic disease and his general medical condition continues to progressively deteriorate. He however wants to pursue aggressive therapy and medical treatment for his underlying malignancy. Surgery has been consulted and a chest tube will be placed in today. I spoke personally with Dr. Das and once there is adequate drainage of the pleural fluid, then he will go ahead and do a pleurodesis hopefully tomorrow or the day after. Patient disposition will depend on the rest of his hospital course. cc: Gaudencio Ryder MD
--- NOTE | 2017-06-02 17:00 | OPERATIVE NOTE ---
PROCEDURE DATE: 06/02/2017 PREOPERATIVE DIAGNOSES: 1. Metastatic adenocarcinoma right lung. 2. Right pleural effusion. POSTOPERATIVE DIAGNOSES: 1. Metastatic adenocarcinoma right lung. 2. Right pleural effusion. PRINCIPAL PROCEDURE: Placement of a #28-[place] right chest tube. SURGEON: Mariella Das MD. ANESTHESIA: Local with IV sedation. ESTIMATED BLOOD LOSS: Less than 10 mL. DRAINS: A 28-[place] chest tube right chest. INDICATIONS: Mr. Wyatt Arriaga is a 71-year-old black male who has metastatic adenocarcinoma of right lung. He has been admitted with shortness of breath. He underwent a thoracentesis and 1 L of fluid was removed and his right pleural effusion has reaccumulated and we are asked to place a chest tube. DESCRIPTION OF PROCEDURE: The patient was brought to the operating room, placed in the sitting position in the operating room bed. Right chest was prepped and draped in a sterile field. I used local anesthetic at our incision site. I made an incision anterior axillary line, below the nipple on the right with a 15 blade scalpel. I used Son scissors to tunnel subcutaneously to above a rib where I entered the chest and placed a 28-[place] chest tube, which I tried to place posteriorly and superiorly. Only approximately 150-200 mL of thin serosanguineous fluid was removed initially. We secured the chest tube to the skin with a 0 silk stitch. We got a portable chest x-ray prior to moving him off the operating room table. It showed that the right chest tube was in the chest and the position was adequate. Plans are for him to go the recovery room and then to the floor with this chest tube in place. cc: Mariella Das MD
[2017-06-02] MEDS: MORPHINE IV PRN ×2 (18:54→22:19)
[2017-06-03] MEDS: MORPHINE IV PRN ×3 (02:39→20:17)
[2017-06-03] MEDS: DUONEB (A & A) INH SCH ×6 (03:25→23:06)
[2017-06-03 06:10] LABS: MANUAL DIFF NEEDED? NO
[2017-06-03 06:15] LABS: BASO% 0.1 % (0.0-0.8); EOS# 0.01 X1000 (0.0-0.7); EOS% 0.1 % (0.0-10.0); HEMATOCRIT 25.9 % (42.0-52.0); IMM GRAN# 0.25 X1000 (0.0-0.04); IMM GRAN% 2.8 % (0.0-0.5); LYMPH# 1.17 X1000 (1.2-3.4); LYMPH% 13.3 % (20.5-51.1); MCH 28.4 PG (27-31); MCHC 30.9 g/dL (33-37); MCV 91.8 FL (81-99); MONO# 0.69 X1000 (0.11-0.59); MONO% 7.8 % (1.7-9.3); MPV 10.6 FL (7.4-10.4); NEUT% 75.9 % (42.2-75.2); PLT 135 X1000 (130-400); RBC 2.82 XMIL (4.7-6.1)
[2017-06-03 06:33] LABS: CALCIUM 7.6 mg/dL (8.8-10.2); POTASSIUM 4.1 mmol/L (3.5-5.1)
--- NOTE | 2017-06-03 07:27 | Diag Imaging Result Doc PS360 ---
EXAM: CHEST-1 VIEW HISTORY: SOB TECHNIQUE: Portable COMPARISON: 06/02/2017 FINDINGS: There is a moderate-sized right-sided pleural effusion. This is slightly smaller than on the prior study. No change in the position of the right-sided chest tube. There is atelectasis to the right lung. This is less pronounced than on the prior exam. The left lung is well expanded and clear. Heart is mildly prominent. IMPRESSION: Mild interval improvement. Electronically signed by Abdoulaye Lopez 06/03/2017 7:25 AM
[2017-06-03] MEDS: SYMBICORT 80/4.5 MICROGM INHALER INH SCH (07:30)
[2017-06-03] MEDS: ZYVOX PO SCH ×2 (08:54→20:17)
[2017-06-03] MEDS: MAG-OX PO SCH ×2 (08:54→20:16)
[2017-06-03] MEDS: MAXIPIME 1 GM in D5W 50 ML IV SCH ×2 (08:55→20:17)
--- NOTE | 2017-06-03 09:15 | CONSULTATION ---
DATE OF CONSULTATION: 06/02/2017 REQUESTING PHYSICIAN: Hospitalist. REASON FOR CONSULTATION: Lung cancer, patient known. HISTORY OF PRESENT ILLNESS: Mr. Arriaga is a 71-year-old, male, who is known to us as we have been treating him for metastatic lung cancer, who presented to the emergency department at [facility] complaining of increased shortness of breath x1 day. Further workup revealed the patient to have pneumonia, as well as pleural effusion. The patient has undergone thoracentesis and removed about 1 L of fluid. More recently, he has had an increase in recurrence of his pleural effusion. The patient is currently status post 2 cycles of Alimta carbo and Keytruda. After his second cycle, he developed neutropenic fever and had an extended hospital stay. He was actually discharged from [facility] on 05/06/2017. We have seen the patient in the office, and he has required some blood transfusions. He was actually due for follow-up again today in our office to discuss further cancer treatment. The patient has not received any further chemotherapy or immunotherapy since his last dose of carbo Alimta and Keytruda, which was on 03/25/2017. Currently the patient is resting in bed. He reports that he feels better than on admission. PAST MEDICAL HISTORY: 1. Metastatic non-small cell lung cancer. 2. Hypertension. 3. Essential thrombocytosis. PAST SURGICAL HISTORY: Status post lung biopsy. SOCIAL HISTORY: Patient currently lives alone. He does have family that is supportive, but they live in the [place] area. The patient quit smoking and drinking about 13 years ago. FAMILY HISTORY: Noncontributory. REVIEW OF SYSTEMS: A 12 point review of systems has been completed and is negative, except for what was expressed in the HPI. PHYSICAL EXAMINATION: Vital Signs: Temperature 98.7 degrees, heart rate 119, respirations 20, blood pressure 106/65, O2 saturation 99% on 2 L nasal cannula. General: This is an male lying in hospital bed. He is in no acute distress. There is no one at bedside. HEENT: Head: Normocephalic, atraumatic. Eyes: Pupils equal, round and reactive. Ears, nose, throat, neck, mouth: Oral mucosa is normal. Gross auditory acuity is intact. Trachea is midline. Cardiovascular: Tachycardia noted with regular rhythm. No murmurs, gallops, rubs appreciated. Respiratory: Chest is essentially clear to auscultation bilaterally. He does have some coarse breath sounds. Gastrointestinal: Abdomen is soft, nontender, nondistended with positive bowel sounds. Musculoskeletal: No obvious bony abnormalities. Extremities: Patient has some trace bilateral lower extremity edema. Neurologic: Patient is alert and oriented x3 with no focal motor deficits noted. LABS AND STUDIES: White blood cells 9.23, hemoglobin 8.5, hematocrit 27.0, platelet count 137. Sodium 138, potassium 3.9, chloride 98, CO2 27, BUN 12, creatinine 1.7, glucose 97. Most recent chest x-ray shows increasing right pleural effusion. He is status post thoracentesis as per above. Cytology came back as positive for malignancy. ASSESSMENT AND PLAN: 1. Metastatic non-small cell lung cancer. The patient's treatment will currently be on hold during his hospitalization. We will consider further treatment once he is out and has recovered. 2. Acute onset shortness of breath. This is likely due to worsening pleural effusion. He has already undergone thoracentesis now with reaccumulation of the pleural fluid. Dr. Das has been consulted and there are plans to proceed with a chest tube with pleurodesis in the next couple days. Again, the cytology has come back as malignant as per above. 3. Generalized weakness and deconditioning. Patient will need to continue physical therapy. 4. Likely underlying pneumonia. He will continue intravenous antibiotics for a total of 14 days. 5. Acute kidney injury. Creatinine is overall stable. Continue to monitor. 6. History of congestive heart failure with ejection fraction of 25% to 30%. He continues on diuretic therapy at this time. 7. Hypokalemia. Continue repletion as per the primary team. Thank you for allowing us to participate in Mr. Arriaga's care while he is here at [facility]. We will continue to follow along and adjust our treatment plan per his hospital course. Dictated by CULLEN Larose for Lissa Wiseman MD cc: Lissa Wiseman MD I have seen and examined the patient and agree with the above A/P. Lissa Wiseman MD [facility]
[2017-06-03] MEDS: COREG PO SCH ×2 (10:37→20:17)
[2017-06-03] MEDS: LASIX PO SCH (10:37)
--- NOTE | 2017-06-03 11:58 | PROGRESS NOTE ---
DATE: 06/03/2017 SUBJECTIVE: Mr. Arriaga reports that he is doing relatively well today. OBJECTIVE: Vital Signs: Temperature 98.3 degrees, heart rate 112, respirations 20, blood pressure 99/59, O2 saturation is 97% on 2 L nasal cannula. Laboratory: White blood cells 8.1, hemoglobin 8.3, hematocrit 25.9, platelets a 135,000. Sodium 140, potassium 4.1 , chloride 98, CO2 29, BUN 23, creatinine 1.9, glucose 109. Cytology on the pleural fluid was positive for malignancy. CV: Tachycardia noted with regular rhythm. Respiratory: Chest is essentially clear to auscultation. He does have some coarse breath sounds. Gastrointestinal: Abdomen is soft, nontender, nondistended. Positive bowel sounds. Extremities: No edema noted. ASSESSMENT AND PLAN: 1. Metastatic [id number] lung cancer. Patient has only received 2 cycles of chemotherapy. He has had an extended hospital stay and a long recovery. At this time, we would consider more treatment if the patient were to become strong enough and able. Treatment is currently on hold during the patient's acute illness and issues. 2. Malignant pleural effusion on the right. Patient is now status post chest tube placement. He will continue chest tube management as per Dr. Das. There is discussion about doing a pleurodesis as well. 3. Suspected pneumonia. Continue intravenous antibiotics. O2 support. 4. Congestive heart failure with ejection fraction 25% to 30%. Continue diuretics therapy as well as heart medications as prescribed. 5. Disposition. We recommend that the patient strongly consider going to possibly rehab upon discharge. He had an extended hospital stay previously, and did not go to rehab and has had a long recovery. Discussed this with the patient today. No final decision made, but he is considering. Dictated by CULLEN Larose for Lissa Wiseman MD cc: Lissa Wiseman MD I have seen and examined the patient and the above note reflects my assessment and plan Lissa ARAIZA
--- NOTE | 2017-06-03 12:09 | PROGRESS NOTE ---
DATE: 06/03/2017 Yesterday I placed a right #28-[place] chest tube and did not get a significant amount of fluid out of his right chest. We removed 200 mL. Now he has 300 mL in the canister. His right chest tube is functional. There is no significant air leak. On chest x-ray his lung is expanded but he continues to have a pleural effusion which must be loculated. He has no work of breathing. We will make sure that there is no significant drainage and will get rid of this chest tube after pleurodesis. cc: Mariella Das MD
[2017-06-03] MEDS: LEVAQUIN 500 MG/D5W 500 MG/100 ML IVPB IV SCH (15:21)
--- NOTE | 2017-06-03 17:29 | PROGRESS NOTE ---
DATE: 06/03/2017 SUBJECTIVE: Mr. Arriaga states he is about the same. Comfortable. Chest tube right side. OBJECTIVE: Vital signs: Temp 98.2 degrees, pulse 105, respirations 20, blood pressure 91/58. HEENT: Pupils are equal, round. Lungs: Clear in all lung leach. Cardiovascular: Regular rate without murmur, S3. skin: Chest tube in the right side. extremities: No pedal edema. ASSESSMENT AND PLAN: 1. Placed a 28-[place] chest tube. Did not get significant amount of fluid out of the right chest. Removed 200 mL and now has 300 mL in the canister. His right chest is functional. No significant air leak. His chest x-ray, the lung is expanded, but he continues to have pleural effusion which must be loculated. He has no work of breathing, and will plan to get rid of the chest tube after pleurodesis. 2. Malignant pleural effusion on the right. 3. Suspected pneumonia. Continue present antibiotics. 4. Congestive heart failure. Ejection fraction in the past has been 25% to 30%. Continue diuresis. 5. Disposition. The patient consider rehab upon discharge. He had an extended hospital stay previously and did not go to rehab, and has had a long recovery, so I think he is still contemplating this. Reviewed orders. I do not see any change. cc: Krishna Nolen MD
[2017-06-03] MEDS: SYMBICORT 160/4.5 MICROGM INHALER INH SCH (19:04)
[2017-06-04] MEDS: DUONEB (A & A) INH SCH ×6 (03:12→22:38)
--- NOTE | 2017-06-04 07:21 | Diag Imaging Result Doc PS360 ---
CHEST-1 VIEW - 06/04/2017 INDICATION: SOB TECHNIQUE: COMPARISON: 06/03/2017 FINDINGS: Stable cardiomegaly. Stable right basilar chest tube. Stable significant opacification of the right base with a pleural effusion. Stable opacification at the right apex as well. The left lung is grossly clear. IMPRESSION: No change from prior. Electronically signed by Doyle Pittman 06/04/2017 7:19 AM
[2017-06-04] MEDS: SYMBICORT 160/4.5 MICROGM INHALER INH SCH ×2 (07:51→19:31)
[2017-06-04] MEDS: COREG PO SCH ×2 (08:59→20:42)
[2017-06-04] MEDS: MAXIPIME 1 GM in D5W 50 ML IV SCH ×2 (08:59→20:42)
[2017-06-04] MEDS: ZYVOX PO SCH ×2 (08:59→20:42)
[2017-06-04] MEDS: MAG-OX PO SCH ×2 (08:59→20:42)
[2017-06-04] MEDS: LASIX PO SCH (08:59)
[2017-06-04] MEDS: LEVAQUIN 500 MG/D5W 500 MG/100 ML IVPB IV SCH (14:57)
--- NOTE | 2017-06-04 17:45 | PROGRESS NOTE ---
DATE: 06/04/2017 SUBJECTIVE: He felt like maybe his lungs are a little more junky, but overall he feels like he is breathing about the same. He remains afebrile. OBJECTIVE: Vital Signs: Temperature 98, pulse 115, respirations 19, blood pressure 103/54. Lungs: Are clear in all lung leach. Cardiovascular: Exam regular rate without murmur or S3. Abdomen: Soft. Skin: Warm and dry. Chest tube in place. ASSESSMENT AND PLAN: I do not see any change. Chest x-ray done this morning. No change from prior. Stable cardiomegaly. Stable right basilar chest tube. Stable significant opacification of the right base and pleural effusion. Stable opacification of the right apex as well. So plan is to I think continue to dry the lung out. Then hopefully perform pleurodesis. He is eating well. Nutrition seems to be good. Continue present antibiotics for pneumonia. No other changes. cc: Krishna Nolen MD
--- NOTE | 2017-06-04 17:51 | PROGRESS NOTE ---
DATE: 06/04/2017 SUBJECTIVE: Mr. Wyatt Arriaga's right chest tube has drained less than 100 mL over the last 24 hours. His chest x-ray has not changed. He still has some fluid involving the right chest, evidently it is loculated. I will remove his chest tube because it is not draining any fluid to speak of. I know it is functional. There is no air leak and so I removed his right chest tube today. We will follow his shortness of breath and chest x-ray to see if anything else needs to be done. He says with activity he is still short of breath, but that could be his tumor in addition to fluid right lung. cc: Mariella Das MD
[2017-06-05] MEDS: DUONEB (A & A) INH SCH ×6 (03:42→23:03)
[2017-06-05 05:08] LABS: ALLEN TEST YES; BE 3.9 mmoll (-3.0-3.0); BLOOD TYPE ARTERIAL; DRAW SITE R RADIAL; O2(CT) 11.8 mL/dL (15.0-23.0); PCO2(98.6) 37 mmHg (35-45); PO2(98.6) 57 mmHg (60-100); SAMPLE BLOOD; SAO2 92.8 % (95.0-100.0); THB 9.3 g/dL (11.5-17.4); pH(98.6) 7.48 (7.35-7.45)
[2017-06-05 05:11] LABS: MODALITY CANNULA
[2017-06-05 06:36] LABS: MANUAL DIFF NEEDED? NO
[2017-06-05 06:57] LABS: EOS# 0.01 X1000 (0.0-0.7); EOS% 0.1 % (0.0-10.0); HEMATOCRIT 25.9 % (42.0-52.0); HEMOGLOBIN 8.1 g/dL (14.0-18.0); IMM GRAN# 0.15 X1000 (0.0-0.04); IMM GRAN% 1.6 % (0.0-0.5); LYMPH# 1.12 X1000 (1.2-3.4); LYMPH% 12.2 % (20.5-51.1); MCH 28.3 PG (27-31); MCHC 31.3 g/dL (33-37); MCV 90.6 FL (81-99); MONO# 0.61 X1000 (0.11-0.59); MONO% 6.7 % (1.7-9.3); MPV 10.6 FL (7.4-10.4); NEUT% 79.4 % (42.2-75.2); PLT 119 X1000 (130-400); RBC 2.86 XMIL (4.7-6.1)
--- NOTE | 2017-06-05 07:26 | Diag Imaging Result Doc PS360 ---
EXAM: CHEST-1 VIEW INDICATION: SOB TECHNIQUE: One view COMPARISON: 06/04/2017 FINDINGS: At the right basilar chest tube appears to been removed. The prominent loculated effusion on the right is unchanged. No new consolidations identified. Cardiac silhouette is stable. IMPRESSION: Apparent interval removal of the right chest tube. Stable chest, otherwise. Electronically signed by Aiden Wolfe 06/05/2017 7:24 AM
[2017-06-05] MEDS: SYMBICORT 160/4.5 MICROGM INHALER INH SCH ×2 (07:40→19:16)
[2017-06-05] MEDS: MAG-OX PO SCH ×2 (08:31→20:41)
[2017-06-05] MEDS: COREG PO SCH ×2 (08:31→20:41)
[2017-06-05] MEDS: MAXIPIME 1 GM in D5W 50 ML IV SCH ×2 (08:31→20:41)
[2017-06-05] MEDS: LASIX PO SCH (08:31)
[2017-06-05] MEDS: ZYVOX PO SCH ×2 (08:32→20:41)
--- NOTE | 2017-06-05 14:38 | PROGRESS NOTE ---
DATE: 06/05/2017 Mr. Wyatt Arriaga's chest x-ray still shows a pleural effusion but it is no worse after me removing his chest tube yesterday evening. He is resting comfortably. He does say that he gets short of breath with exertion. This fluid is loculated. I could not drain it with a chest tube and I am trying to avoid any other more invasive procedure. With his ongoing pleural effusion, I did not think pleurodesis would be effective. Hopefully he can go home with home oxygen and not have any more invasive procedures involving his right chest. cc: Mariella Das MD
[2017-06-05] MEDS: LEVAQUIN 500 MG/D5W 500 MG/100 ML IVPB IV SCH (14:39)
--- NOTE | 2017-06-05 18:09 | PROGRESS NOTE ---
DATE: 06/05/2017 SUBJECTIVE: He had chest tube taken out. He is feeling better and thinking about going home tomorrow, if he is eating a little better. OBJECTIVE: Vital signs: Afebrile, temp 98.2 degrees, pulse 109, respirations 18, blood pressure 107/59. HEENT: Pupils are equal, round. Lungs: Clear in all lung leach. Cardiovascular: Regular rhythm and rate, without murmur or S3. Abdomen: Soft. skin: Warm and dry. LABORATORY: White count 9160, hematocrit 25, platelet count 119,000. Chemistry: Sodium 140, potassium 4.1, chloride 98, BUN 23, creatinine 1.9. ASSESSMENT AND PLAN: 1. Chest x-ray still shows pleural effusion, but is no worse. Removed the chest tube yesterday evening. Appears to be doing well. The fluid is loculated, could not drain it with a chest tube. I am trying to avoid any other invasive procedures. I do not think pleurodesis will be affective. Hope to send him home tomorrow. 2. Nutrition. He is eating, good p.o. intake. 3. Underlying lung cancer. cc: Krishna Nolen MD
[2017-06-05] MEDS: MORPHINE IV PRN (21:20)
[2017-06-06] MEDS: DUONEB (A & A) INH SCH ×6 (03:10→23:27)
[2017-06-06 05:00] LABS: ALLEN TEST YES; BE -9.5 mmoll (-3.0-3.0); BLOOD TYPE ARTERIAL; DRAW SITE R RADIAL; METHB 1.1 % (0.0-1.5); O2(CT) 13.9 mL/dL (15.0-23.0); PCO2(98.6) 30 mmHg (35-45); PO2(98.6) 65 mmHg (60-100); SAMPLE BLOOD; SAO2 96.3 % (95.0-100.0); THB 10.5 g/dL (11.5-17.4); pH(98.6) 7.32 (7.35-7.45)
[2017-06-06 05:01] LABS: MODALITY CANNULA
[2017-06-06 05:55] LABS: MAGNESIUM 2.4 mg/dL (1.5-2.7); POTASSIUM 4.2 mmol/L (3.5-5.1)
--- NOTE | 2017-06-06 06:25 | EKG Report ---
Test Performed on : 06/06/2017 05:19:17 AM Test Reason : pvc Blood Pressure : / mmHG Vent. Rate : 114 BPM Atrial Rate : 114 BPM P-R Int : 148 ms QRS Dur : 096 ms QT Int : 348 ms P-R-T Axes : 039 -17 268 degrees QTc Int : 479 ms Sinus tachycardia. Possible Left atrial enlargement ST \T\ T wave abnormality, consider inferolateral ischemia Abnormal ECG When compared with ECG of 28-MAY-2017 02:21, premature atrial complexes. are no longer present T wave inversion more evident in Inferior leads Confirmed by Callum TRIPATHI, Krishna Mcqueen ([id number]) on 06/06/2017 6:42:08 AM
--- NOTE | 2017-06-06 07:11 | Diag Imaging Result Doc PS360 ---
EXAM: CHEST-1 VIEW HISTORY: SOB TECHNIQUE: Portable AP COMPARISON: 10/06/2016 FINDINGS: There is a moderate-sized right-sided pleural effusion with volume loss in the right lung. There may be an underlying infiltrate as well. Findings appear slightly more pronounced on the prior exam. Heart remains enlarged. The left lung is well expanded and clear. IMPRESSION: No interval improvement. Findings may be slightly more pronounced than on the prior exam. Electronically signed by Abdoulaye Lopez 06/06/2017 7:09 AM
[2017-06-06] MEDS: SYMBICORT 160/4.5 MICROGM INHALER INH SCH ×2 (07:54→19:30)
--- NOTE | 2017-06-06 08:10 | PROGRESS NOTE ---
DATE: 06/06/2017 Mr. Wyatt Arriaga has no shortness of breath when in bed. With exertion, he does have shortness of breath. He does have home O2. He has a chest x-ray that shows fluid on the right, but this fluid is loculated, and the chest tube did not drain much of it. We removed the chest tube because it was not doing anything. We are trying to avoid any more invasive procedure in a patient with metastatic lung cancer. I reviewed his blood gas today. His PaO2 was 65. PLAN: He is eating a regular diet. I would like him to move around more and possibly look to discharge him home if his pulmonary function is adequate on nasal cannula O2. cc: Mariella Das MD
[2017-06-06] MEDS: MAXIPIME 1 GM in D5W 50 ML IV SCH (09:17)
[2017-06-06] MEDS: MAG-OX PO SCH ×2 (09:17→21:19)
[2017-06-06] MEDS: LASIX PO SCH (09:17)
[2017-06-06] MEDS: COREG PO SCH ×2 (09:17→21:19)
[2017-06-06] MEDS: ZYVOX PO SCH (09:18)
--- NOTE | 2017-06-06 13:39 | PROGRESS NOTE ---
DATE: 06/06/2017 SUBJECTIVE: Mr. Arriaga is feeling better, but he does not feel ready to go home. He is still pretty weak and tired and his chest tube is out. He is eating. OBJECTIVE: Temperature 98.3 degrees, pulse 72, respirations 20, blood pressure 115/72. Lungs are clear in all lung leach Cardiovascular: Regular rate without murmur or S3. Abdomen is soft. Skin is warm and dry. Reviewed lab from 06/04/2017. Blood gases from yesterday: pCO2 was 30, PO2 was 65. This was on 32%. He has home O2. Chest x-ray from this morning: No interval improvement. Findings slightly more prominent. I suspect he has got loculated effusion. We did not do pleurodesis. He would like to try and go home in the morning. So, if he does okay tonight, we will get him ready go home. He still has shortness of breath with exertion. Review of orders. I do not see any change. We have him on the cefepime. Cultures have not revealed any growth, and he has remained afebrile, so, I think we can stop the cefepime. cc: Krishna Nolen MD
[2017-06-06] MEDS: MORPHINE IV PRN (21:19)
[2017-06-07] MEDS: DUONEB (A & A) INH SCH ×6 (03:27→23:28)
--- NOTE | 2017-06-07 06:47 | Diag Imaging Result Doc PS360 ---
EXAM: CHEST-1 VIEW HISTORY: SOB TECHNIQUE: Portable AP COMPARISON: 06/06/2017 FINDINGS: There is a right-sided pleural effusion with basilar atelectasis and possibly and underlying infiltrate. Mediastinal prominence remains as does mild cardiomegaly. The left lung remains clear. The vessels are not distended. IMPRESSION: Stable chest. Electronically signed by Abdoulaye Lopez 06/07/2017 6:45 AM
[2017-06-07] MEDS: SYMBICORT 160/4.5 MICROGM INHALER INH SCH ×2 (07:44→19:31)
[2017-06-07] MEDS: LASIX PO SCH (08:15)
[2017-06-07] MEDS: COREG PO SCH ×2 (08:15→21:54)
[2017-06-07] MEDS: MAG-OX PO SCH ×2 (08:15→21:54)
--- NOTE | 2017-06-07 12:35 | PROGRESS NOTE ---
DATE: 06/07/2017 SUBJECTIVE: Mr. Arriaga is breathing better and feeling better. He says he cannot go home. There is nobody there. There is nobody to take care of him. He wants to know if he can try and go to rehab on the first of the week. The chest tube is out. He is breathing alright, but he still very weak. Nobody to help him and he is not able to get up in bed and do for himself with daily activities. OBJECTIVE: He remains afebrile.Vital signs: Temperature 98.5 degrees, pulse 114 and respirations 16. Lungs: Clear in all lung leach. Cardiovascular: Regular rhythm and rate without murmur or S3. Abdomen: Soft. Skin: Warm and dry. URINE OUTPUT: 1200 mL. LABORATORY: Reviewed from the and looks good. ASSESSMENT AND PLAN: 1. Respiratory status is stable and doing well. Chest tube is out. He has some loculated fluid in the right. He appears to be breathing overall about the same if not improved. We stopped the cefepime yesterday. The cultures do not reveal any growth from the pleural fluid. 2. Lung cancer and has metastatic adenocarcinoma of the right lobe seen by Dr. Pineda and Dr. Palm. He received 2 treatments of chemotherapy. We will see if we can see what the plan is. We will see if we can get him to rehab on Friday or Friday. 3. Nutrition. He has lost quite a bit of weight so I encouraged him to get some food down. Looking at his orders, I do not see any other changes. cc: Krishna Nolen MD
[2017-06-08] MEDS: DUONEB (A & A) INH SCH ×6 (03:26→23:23)
[2017-06-08] MEDS: SYMBICORT 160/4.5 MICROGM INHALER INH SCH ×2 (08:07→19:35)
[2017-06-08] MEDS: LASIX PO SCH (08:50)
[2017-06-08] MEDS: MAG-OX PO SCH ×2 (08:50→21:36)
[2017-06-08] MEDS: COREG PO SCH ×2 (08:50→21:36)
--- NOTE | 2017-06-08 13:27 | PROGRESS NOTE ---
DATE: 06/08/2017 SUBJECTIVE: Mr. solis is feeling better. His breathing is better. Still very weak. He is eating. Bowels are moving okay. He would like to go to rehab. He lives alone so we are going to see what we can find. Maybe we can get to rehab position tomorrow or Friday. OBJECTIVE: Vital signs: Temp is 97.7 degrees, pulse 110, respirations 18, blood pressure 124/61. Lungs: Clear in all lung leach. Cardiovascular: Regular rhythm and rate without murmur or S3. Abdomen: Soft. Skin: Warm and dry. ASSESSMENT AND PLAN: 1. Respiratory status stable. Doing well. Chest tube is out. No pleuritic pain on the right. Seems to be doing well. Stop the cefepime. 2. Lung cancer, metastatic adenocarcinoma of the right lung. Followed by Dr. Pineda and Dr. Wiseman. He has had 2 treatments of chemotherapy, so will see what we want to resume. We are hoping to go to rehab. He is still very weak. 3. Nutrition. He lost quite a bit of weight but his p.o. intake seems to be improved. Hopefully we can look for rehab spot. We will get social service involved. cc: Krishna Nolen MD
[2017-06-09] MEDS: DUONEB (A & A) INH SCH ×6 (03:30→23:06)
[2017-06-09] MEDS: SYMBICORT 160/4.5 MICROGM INHALER INH SCH ×2 (07:33→19:35)
[2017-06-09] MEDS: LASIX PO SCH (08:37)
[2017-06-09] MEDS: COREG PO SCH ×2 (08:37→20:54)
[2017-06-09] MEDS: MAG-OX PO SCH ×2 (08:37→20:54)
--- NOTE | 2017-06-09 12:37 | PROGRESS NOTE ---
DATE: 06/09/2017 SUBJECTIVE: He states he is breathing comfortably. He is resting. Still very weak. Hard to walk around without some help. He will not be able to do his bathing or be able prepare food for himself and so hoping to get find a place at rehab. OBJECTIVE: Vital signs: Temperature 98.6 degrees, pulse 103, respirations 16, blood pressure 106/63. Lungs: Clear in all lung leach. Cardiovascular: Regular rhythm and rate without murmur or S3. Abdomen: Soft. Skin: Warm and dry. Intake and output: Urine output 480 mL. LAB: Reviewed from the . Serum creatinine is 1.9; that was from the 10th. May check some more electrolytes in the morning and see where we are. ASSESSMENT AND PLAN: 1. Respiratory status is good. Chest tube is out. No right-sided chest pain. We stopped the cefepime. 2. Lung cancer, metastatic adenocarcinoma of the right lung. Followed by Dr. Pineda and Dr. Wiseman. He has had 2 treatments of chemotherapy. Hope to discharge to a intermediate. 3. General weakness and deconditioning. Hope to find a rehab facility so he can get stronger and go home. 4. Nutrition is improved. P.o. intake has improved. Encouraging him to eat what he can. 5. Review of his orders. I do not see any change. cc: Krishna Nolen MD
[2017-06-10] MEDS: DUONEB (A & A) INH SCH ×6 (03:10→23:08)
[2017-06-10] MEDS: SYMBICORT 160/4.5 MICROGM INHALER INH SCH ×2 (07:24→19:16)
[2017-06-10] MEDS: MAG-OX PO SCH ×2 (08:24→19:59)
[2017-06-10] MEDS: LASIX PO SCH (08:24)
[2017-06-10] MEDS: COREG PO SCH ×2 (08:24→19:59)
--- NOTE | 2017-06-10 15:09 | PROGRESS NOTE ---
DATE: 06/10/2017 SUBJECTIVE: The patient reports feeling fine. Denies any shortness of breath, any chest pain, any fever or chills. He reports feeling very weak. OBJECTIVE: Vital Signs: Temperature 97.9 degrees, heart rate 116, respiratory rate 15, blood pressure 108/56, O2 saturation 96% on 2 L nasal cannula. General Examination: This is a chronically ill-looking, 71-year-old, male. Lying in bed, in no acute distress. HEENT: Head is normocephalic, atraumatic. Neck: Supple. No JVD noted. No carotid bruits. No lymphadenopathy. Cardiovascular: S1, S2 heard. No murmurs, gallops, or rubs. Regular rate and rhythm. Respiratory: Clear bilaterally to auscultation. No work of breathing or using accessory muscles. Abdomen: Soft, nontender to palpation. Bowel sounds present. No organomegaly. No signs of peritoneal irritation. Extremities: No clubbing, cyanosis, or edema. Peripheral pulses present in both legs. Neurological: The patient alert and oriented x3. Moves 4 extremities. LABORATORY DATA: There are no labs from for the last 4 days. ASSESSMENT AND PLAN: 1. Metastatic adenocarcinoma of the right lung. The patient is being followed by Dr. Pineda and Dr. Wiseman. He had, so far, 2 treatments for chemotherapy and the plan is to send to him rehab facility and see if he can get stronger to restart chemotherapy. 2. Right pleural effusion, resolved. 3. Acute kidney injury, resolved. 4. Congestive heart failure, with ejection fraction of 25% 30%. We will continue home medications. 5. General deconditioning. We have found a bed for him for rehab facility [place], but he refused to go there. Now we are waiting for a bed in [facility] so, hopefully, we can send this patient tomorrow. cc: Daniel Cantu MD
[2017-06-10] MEDS ORDERED: NS 250 ML IV ONE (21:44)
[2017-06-10] MEDS ORDERED: NS 500 ML IV ONE (22:24)
[2017-06-11] MEDS: DUONEB (A & A) INH SCH ×6 (03:14→23:39)
--- NOTE | 2017-06-11 04:37 | DISCHARGE SUMMARY ---
ADMISSION DATE: 05/28/2017 DISCHARGE DATE: 06/10/2017 PRIMARY CARE PROVIDER: None. CONSULTATIONS: 1. Dr. Pineda with Pulmonology. 2. Dr. Das with General Surgery. 3. Dr. Wiseman with Oncology. PERTINENT PROCEDURES: 1. Chest CT. Impression: Worsening atelectasis and infiltrates in the right lung with a mass encircling the upper and lower lobes bronchi and apparent collapse of the right middle lobe. Worsening loculations in the right pleural fluid. Development of tiny infiltrate or atelectasis in the left lung. 2. Thoracentesis. On 05/29/2017, approximately 1 L of thin reddish fluid was withdrawn from the right pleural space without difficulty. 3. Echocardiogram. Dilatation of the left ventricle with significant impaired function. Ejection fraction is estimated at 25-30% with akinesis of the inferior wall. A mild degree of tricuspid and right mitral regurgitation. Impaired left ventricle relaxation. Pulmonary pressure estimated at 34-39 mmHg. The aortic valve is normal. 4. Right chest tube placement on 06/02/2017. 5. Final chest x-ray on 06/07/2017. There is a right-sided pleural effusion with basilar atelectasis and possibly an underlying infiltrate. Mediastinal prominence remains as does mild cardiomegaly. Left lung remains clear. The vessels are not distended. Stable chest. DISCHARGE DIAGNOSES: 1. Acute onset of shortness of breath with worsening pleural effusion. The patient was taken for a thoracentesis on 05/29/2017 and a right chest tube was placed on 2016. Chest tube was removed on 06/04/2017. 2. Right lung adenocarcinoma with possible obstruction of the bronchi. The patient received 2 doses of chemotherapy as an inpatient and will continue with treatments after discharge from rehab. 3. Metastatic adenocarcinoma of the lung. The patient will continue with chemo treatment after discharge from rehab. 4. General deconditioning and failure to thrive. We will continue physical therapy. 5. Suspected underlying pneumonia. Will continue antibiotics. 6. Acute kidney injury. 7. Hypokalemia resolved. 8. History of congestive heart failure with an EF of 25-30%. Will continue diuretics. HOSPITAL COURSE: Mr. Arriaga is a 71-year-old, male with a past medical history of lung cancer with mets, hypertension and a central thrombocytosis. He presented to the ER for increased shortness of breath x1 day. The patient was immediately placed on BiPAP. Further workup in the ER showed white blood cell count of 23.8. The CT scan showed increasing right pleural effusion with some loculations and also worsened atelectasis and infiltrates in the right lung with the mass encircling the right upper and lower lobe bronchi and collapse of the right middle lobe. Pulmonology was consulted. The plan is to continue with BiPAP therapy and inhaled bronchodilators, IV antibiotics and IV Lasix . The patient underwent a thoracentesis on 05/29/2017 17 where approximately 1 L of thin reddish fluid was removed from the right pleural space without difficulty. The right pleural fluid and was predominantly lymphocytic cells and increased LDH concerning for malignant pleural effusion. The patient continued to accumulate fluid within the pleural space so Dr. Das was consulted on 06/01/2017 and the right chest tube was placed on 06/02/2017. Dr. Das removed the chest tube on 06/04/2017 as he is no longer draining fluid. Dr. Wiseman was consulted. The patient received 2 rounds of chemotherapy as an inpatient, and will continue treatment once he is discharged from rehab. The patient will be discharged to rehab today in [place]. VITAL SIGNS ON DISCHARGE: Temperature 97.9 degrees, heart rate 113, respiratory rate 15, blood pressure 108/56. Oxygen 96 on 2 L nasal cannula. DISCHARGE DIET: Regular diet. DISCHARGE MEDICATIONS: 1. Albuterol 3 mL inhalation q.2 hours p.r.n. 2. Agrylin 0.5 mg p.o. daily. 3. Aspirin EC 81 mg p.o. daily. 4. Budesonide formoterol inhaler two puffs inhalation. 5. Coreg 12.5 mg p.o. b.i.d. 6. Vitamin D2 93294 units p.o. 7. Lasix 40 mg p.o. daily. 8. Hydrocodone 10 mg p.o. q.4 hours p.r.n. 9. Hydrea 500 mg p.o. daily. 10. Lactobacillus one p.o. b.i.d. 11. Magnesium oxide 800 mg p.o. b.i.d. 12. Protonix 40 mg p.o. daily. FOLLOW UP: The patient needs to follow up with Dr. Wiseman as an outpatient. Continue chemotherapy treatment. ADDENDUM: PATIENT REFUSED TO BE DISCHARGED TO [facility] IN [place], HE WAS ACCEPTED TO [facility] ON 06-11-17. Dictated by STEPHANIE England for Daniel Cantu MD Addendum: Patient seen and examined by myself. Agree with [employer] PROGRAM COORDINATOR note. It reflects my assessment and plan. Patient is discharged in stable condition. All conditions mentioned above are stable now and he is being discharged in stable condition. Because he refused to go to [facility] in [place] we are looking for a bed in [facility]. Will continue to follow him until we get a bed. cc: MD Mariella Domingo MD Dr. Shah Mamoun I. Najjar, MD [facility] MEDICAL CENTERMarleny
[2017-06-11] MEDS: SYMBICORT 160/4.5 MICROGM INHALER INH SCH ×2 (07:36→19:25)
[2017-06-11] MEDS: MAG-OX PO SCH ×2 (08:46→20:47)
[2017-06-11] MEDS: COREG PO SCH ×2 (08:46→20:47)
[2017-06-11] MEDS: LASIX PO SCH (08:47)
--- NOTE | 2017-06-11 14:51 | PROGRESS NOTE ---
DATE: 06/11/2017 SUBJECTIVE: Patient reports feeling fine. Denies any complaints today. OBJECTIVE: Vital Signs: Temperature 98.4 degrees, heart rate 107, respiratory 16, blood pressure 112/51, O2 saturation at 99% on 3 L nasal cannula. General Appearance: This is a chronically ill-looking 71-year-old male, lying in bed in no acute distress. HEENT: Head is normocephalic, atraumatic. Neck: Supple. No jugular venous distention. No carotid bruits. Cardiovascular Examination: S1, S2 heard. No murmurs, gallops, or rubs. Regular rate and rhythm. Respiratory Examination: Clear bilaterally to auscultation. No work of breathing or using accessory muscles. Abdomen: Soft, nontender to palpation. Bowel sounds present. No organomegaly. There are no signs of peritoneal irritation. Extremities: No clubbing, cyanosis, or edema. Peripheral pulses present in both legs. Neurological Examination: Patient alert and oriented x3. Moves 4 extremities. LABORATORY DATA: Not available. ASSESSMENT AND PLAN: 1. Metastatic adenocarcinoma of the right lung. The patient has been followed here by Dr. Chikis Pineda and Dr. Wiseman. Plan for him is to go to rehab facility and see if after his stay there he is strong enough to continue with chemotherapy or not. 2. Right pleural effusion, resolved. 3. Acute kidney injury, resolved. 4. Congestive heart failure with ejection fraction 25% to 30%. We will continue home medications. 5. General deconditioning. We are waiting for approval from his insurance company to see if this patient can be sent to [facility]. As soon as we get an approval, we will send him over there. cc: Daniel Cantu MD
[2017-06-12] MEDS: DUONEB (A & A) INH SCH ×3 (02:35→11:39)
[2017-06-12] MEDS: SYMBICORT 160/4.5 MICROGM INHALER INH SCH (07:30)
[2017-06-12 08:46] VITALS: BP 106/52
[2017-06-12] MEDS: MAG-OX PO SCH (09:28)
[2017-06-12] MEDS: LASIX PO SCH (09:28)
[2017-06-12] MEDS: COREG PO SCH (09:28)
--- NOTE | 2017-06-12 10:47 | DISCHARGE SUMMARY ---
ADMISSION DATE: 05/28/2017 DISCHARGE DATE: 06/12/2017 ADDENDUM: For further details, please check H and P dictated on 06/10/2017. Patient basically was admitted to the hospital for shortness of breath and worsening pleural effusion. He also had a right lung adenocarcinoma. Also, because of those medical conditions , he developed profound generalized weakness. Almost all medical conditions have been resolved. The patient is finally going to a rehab facility today. The plan is to transfer this patient over there and when he is discharged, he is supposed to check with his primary care oncologist to see if he is or not a candidate for continued chemotherapy for lung cancer. While he is in the rehab facility, he is not going to receive any chemotherapy. List of medications are included in the 1st discharge summary. cc: Daniel Cantu MD MTDD
== END 2017-06-12 13:34 ==
LOC: ED 02:26 → SUATTDRO 06:06 → EDIPHOLD 06:06 → 3N 05-29 00:32
PROVIDERS: ATTEND Internal Medicine